=== PATIENT | female | born 1950 ===

== ENCOUNTER 2020-12-14 20:25 | Inpatient (IN) | payer OTHER, MEDICARE ==
[2020-12-14] MEDS ORDERED: Fentanyl 100 MCG/2 ML VIAL ONE (20:28)
[2020-12-14 20:40] LABS: Actual Bicarbonate (HCO3a) 29.1 mEq/L (22-28); Analyzer IN Cardio ER; Base Excess (BEa) 3.3 mEq/L (-2.0 to +3.0); CO2 Tension 48.6 mmHg (35.0-45.0); Calcium, Ionized (arterial) 1.14 mmol/L (1.12-1.30); Carboxyhemoglobin (COHb) 0.7 gm% (0.0-3.0); Hemoglobin (Hb) 14.4 g/dL (12.0-16.0); O2 Tension (PaO2), arterial 217.1 mmHg (> 80.0); Potassium - ABG Lab 4.08 mmol/L (3.70-5.30)
[2020-12-14 20:43] LABS: Puncture Site RRA
[2020-12-14] MEDS ORDERED: Fentanyl CADD 100 ML IV SCH (20:45)
[2020-12-14 20:51] LABS: #Basophils 0.1 thou/uL (0.0-0.2); #Eosinphils 0.5 thou/uL (0.0-0.7); #Lymphocytes 1.6 thou/uL (1.20-3.40); #Neutrophils 11.4 thou/uL (1.40-6.50); %Basophils 0.4 % (0.0-1.0); %Eosinophils 3.7 % (0.0-10.0); %Neutrophils 77.8 % (42.0-75.0); Hemoglobin 14.5 g/dL (12.0-16.0); Mean Corpuscular HGB CONC 33.3 g/dL (32.0-36.0); Mean Corpuscular Hemoglobin 32.2 pg (27.0-31.0); Mean Corpuscular Volume 96.7 fL (78.0-98.0); Mean Platelet Volume 7.6 fL (7.4-10.4); Platelet Count 364 thou/uL (130-400); RBC Distribution Width 14.9 % (11.5-14.5); White Blood Cell (WBC) Count 14.6 thou/uL (4.8-10.8)
[2020-12-14 21:04] LABS: INR-International Normal Ratio 0.9; PTT 23.8 sec (22.9-36.1); Prothrombin Time 12.2 sec (12.0-14.7)
[2020-12-14] MEDS ORDERED: Cefepime 2 GM VIAL ONE (21:09)
[2020-12-14 21:12] LABS: ALT (SGPT) 49 U/L (8-55); AST (SGOT) 33 U/L (5-34); Albumin 3.8 g/dL (3.4-4.8); Alkaline Phosphatase 202 U/L (40-110); Anion Gap 14 mmol/L (10-20); BUN (Urea Nitrogen) 18 mg/dL (9.8-20.1); Bilirubin, Total 0.9 mg/dL (0.2-1.2); Calc. Creatinine Clearance 0 mL/min (70-130); Calcium 9.5 mg/dL (7.8-10.44); Carbon Dioxide 29 mmol/L (23-31); Chloride 98 mmol/L (98-107); Globulin 3.3 g/dL (2.4-3.5); Glucose 210 mg/dL (80-115); Lipase 15 U/L (8-78); Potassium 4.4 mmol/L (3.5-5.1); Protein, Total 7.1 g/dL (5.8-8.1); Sodium 137 mmol/L (136-145)
[2020-12-14 21:13] LABS: Bacteria/HPF None Seen HPF (None Seen); Bilirubin Negative (Negative); Blood, Urine Negative (Negative); Clarity Clear (Clear); Glucose, Urine (Dipstick) 30 mg/dL (Negative); Ketone, Urine Negative (Negative); Leukocyte 25 Leu/uL (Negative); Mucous/LPF 1+ LPF (<2+); Nitrite Negative (Negative); Protein, Urine (Dipstick) 20 mg/dL (Neg-Trace); RBC/HPF 0-3 HPF (0-3); Specific Gravity, Urine 1.023 (1.002-1.036); Squamous Epithelial 0-3 HPF (0-3); Urobilinogen Normal mg/dL (Less than 2); Yeast-Budding 2+ HPF (None Seen)
[2020-12-14 21:36] LABS: SARS-CoV-2 NAA Rapid Test Not Detected (NotDetected)
[2020-12-14] MEDS ORDERED: VANCOMYCIN 2 GRAM/400 ML BAG 2 GM in Premix Bag 1 BAG IVPB SCH (22:30)
[2020-12-14] MEDS ORDERED: DISCONTINUE PREVIOUS NARCOTIC PAIN MEDICATIONS AND BENZODIAZEPINES FS SCH (23:15)
[2020-12-14] MEDS ORDERED: Propofol BOLUS 1,000 MG/100 ML VIAL IV PRN (23:15)
[2020-12-14] MEDS ORDERED: Fentanyl BOLUS 250 ML IVPB PRN (23:15)
[2020-12-14] MEDS ORDERED: Morphine 2 MG/ML VIAL SLOW IVP PRN (23:15)
[2020-12-14] MEDS: Propofol 1,000 MG/100 ML VIAL IV PRN (23:40)
[2020-12-14 23:44] LABS: Lactic Acid 2.2 mmol/L (0.5-2.2)
[2020-12-15] MEDS ORDERED: Lactated Ringer's 1,000 ML IV SCH (00:45)
[2020-12-15] MEDS ORDERED: Ondansetron ODT 4 MG TAB SL PRN (00:45)
[2020-12-15] MEDS ORDERED: Ondansetron PF 4 MG/2 ML Vial IVP PRN ×2 (00:45→01:32)
[2020-12-15] MEDS ORDERED: Dextrose 5% in Water 1,000 ML IV PRN (01:35)
[2020-12-15] MEDS ORDERED: Dextrose 50% Abboject 50 ML SYRINGE SLOW IVP PRN (01:35)
[2020-12-15] MEDS ORDERED: Meropenem 2 GM in Admixture Fee 1 EACH IVPB SCH (01:45)
[2020-12-15] MEDS ORDERED: MEROPENEM 1 GM/50 ML 1 GM in Premix Bag 1 BAG IVPB SCH (01:45)
[2020-12-15] MEDS: methylPREDNISolone Sod Succ 40 MG VIAL IVP SCH ×4 (01:56→20:52)
[2020-12-15 03:41] LABS: Hemoglobin 12.2 g/dL (12.0-16.0); Mean Corpuscular HGB CONC 33.3 g/dL (32.0-36.0); Mean Corpuscular Volume 96.3 fL (78.0-98.0); Mean Platelet Volume 7.8 fL (7.4-10.4); Platelet Count 270 thou/uL (130-400); RBC Distribution Width 14.8 % (11.5-14.5); Red Blood Cell (RBC) Count 3.81 mill/uL (4.20-5.40); White Blood Cell (WBC) Count 10.2 thou/uL (4.8-10.8)
[2020-12-15] MEDS: Levothyroxine Sodium 100 MCG TAB PO SCH (05:09)
[2020-12-15 06:09] LABS: ALT (SGPT) 39 U/L (8-55); AST (SGOT) 22 U/L (5-34); Albumin 3.2 g/dL (3.4-4.8); Alkaline Phosphatase 157 U/L (40-110); Anion Gap 14 mmol/L (10-20); BUN (Urea Nitrogen) 18 mg/dL (9.8-20.1); Calc. Creatinine Clearance 167 mL/min (70-130); Calcium 9.2 mg/dL (7.8-10.44); Carbon Dioxide 29 mmol/L (23-31); Chloride 101 mmol/L (98-107); Globulin 2.7 g/dL (2.4-3.5); Glucose 173 mg/dL (80-115); Potassium 3.8 mmol/L (3.5-5.1); Protein, Total 5.9 g/dL (5.8-8.1); Sodium 140 mmol/L (136-145)
[2020-12-15] MEDS: Lactinex Tablet PO SCH (08:23)
[2020-12-15] MEDS: Enoxaparin Sodium 40 MG/0.4 ML SYRINGE SC SCH (08:23)
[2020-12-15 08:24] LABS: Base Excess (BEa) 3.8 mEq/L (-2.0 to +3.0); CO2 Tension 40.4 mmHg (35.0-45.0); Calcium, Ionized (arterial) 1.18 mmol/L (1.12-1.30); Hemoglobin (Hb) 14.8 g/dL (12.0-16.0); O2 Tension (PaO2), arterial 121.9 mmHg (> 80.0); Potassium - ABG Lab 3.83 mmol/L (3.70-5.30); pH, Arterial 7.46 (7.35-7.45)
[2020-12-15] MEDS: Lactated Ringer's 1,000 ML IV SCH ×2 (08:24→17:22)
[2020-12-15 08:25] LABS: Puncture Site LRA
[2020-12-15] MEDS: Pantoprazole 40 MG VIAL IVP SCH (10:14)
[2020-12-15] MEDS: MEROPENEM 1 GM/50 ML 1 GM in Premix Bag 1 BAG IVPB SCH ×2 (10:15→17:58)
[2020-12-15] MEDS: HumaLOG 300 UNITS/3 ML VIAL SC PRN ×2 (11:37→17:44)
[2020-12-15] MEDS: Propofol 1,000 MG/100 ML VIAL IV PRN ×3 (12:54→20:52)
[2020-12-15] MEDS: Lorazepam 2 MG/ML VIAL SLOW IVP PRN ×2 (14:29→20:52)
[2020-12-15] MEDS ORDERED: VANCOMYCIN 2 GRAM/400 ML BAG 2 GM in Premix Bag 1 BAG IVPB SCH (23:00)
[2020-12-16] MEDS: MEROPENEM 1 GM/50 ML 1 GM in Premix Bag 1 BAG IVPB SCH ×3 (01:39→17:07)
[2020-12-16] MEDS: methylPREDNISolone Sod Succ 40 MG VIAL IVP SCH ×4 (01:40→19:35)
[2020-12-16 03:50] LABS: #Eosinphils 0.1 thou/uL (0.0-0.7); #Lymphocytes 1.1 thou/uL (1.20-3.40); #Monocytes 0.2 thou/uL (0.11-0.59); #Neutrophils 6.9 thou/uL (1.40-6.50); %Lymphocytes 13.2 % (21.0-51.0); %Monocytes 2.8 % (0.0-10.0); Hemoglobin 12.7 g/dL (12.0-16.0); Mean Corpuscular HGB CONC 32.9 g/dL (32.0-36.0); Mean Corpuscular Hemoglobin 30.9 pg (27.0-31.0); Mean Corpuscular Volume 93.9 fL (78.0-98.0); Mean Platelet Volume 7.7 fL (7.4-10.4); Platelet Count 256 thou/uL (130-400); RBC Distribution Width 14.5 % (11.5-14.5); Red Blood Cell (RBC) Count 4.12 mill/uL (4.20-5.40); White Blood Cell (WBC) Count 8.4 thou/uL (4.8-10.8)
[2020-12-16 04:18] LABS: ALT (SGPT) 36 U/L (8-55); AST (SGOT) 20 U/L (5-34); Albumin 3.4 g/dL (3.4-4.8); Alkaline Phosphatase 154 U/L (40-110); Anion Gap 15 mmol/L (10-20); BUN (Urea Nitrogen) 18 mg/dL (9.8-20.1); Bilirubin, Total 0.7 mg/dL (0.2-1.2); Calc. Creatinine Clearance 164 mL/min (70-130); Calcium 9.7 mg/dL (7.8-10.44); Carbon Dioxide 27 mmol/L (23-31); Chloride 100 mmol/L (98-107); Globulin 3.1 g/dL (2.4-3.5); Glucose 177 mg/dL (80-115); Potassium 3.8 mmol/L (3.5-5.1); Protein, Total 6.5 g/dL (5.8-8.1); Sodium 138 mmol/L (136-145)
[2020-12-16] MEDS: Levothyroxine Sodium 100 MCG TAB PO SCH (05:27)
[2020-12-16] MEDS: Propofol 1,000 MG/100 ML VIAL IV PRN (05:27)
[2020-12-16 06:56] LABS: Actual Bicarbonate (HCO3a) 25.3 mEq/L (22-28); Base Excess (BEa) 1.1 mEq/L (-2.0 to +3.0); CO2 Tension 38.9 mmHg (35.0-45.0); Calcium, Ionized (arterial) 1.22 mmol/L (1.12-1.30); Carboxyhemoglobin (COHb) 0.5 gm% (0.0-3.0); Hemoglobin (Hb) 12.6 g/dL (12.0-16.0); O2 Tension (PaO2), arterial 109.8 mmHg (> 80.0); Potassium - ABG Lab 3.31 mmol/L (3.70-5.30); pH, Arterial 7.43 (7.35-7.45)
[2020-12-16 06:58] LABS: ALV-art Gradient 55.475 mmHg (0-20); Puncture Site RRA
[2020-12-16] MEDS ORDERED: DC Sedation Protocol FS SCH (07:39)
[2020-12-16] MEDS: Enoxaparin Sodium 40 MG/0.4 ML SYRINGE SC SCH (08:53)
[2020-12-16] MEDS: Pantoprazole 40 MG VIAL IVP SCH (08:54)
[2020-12-16] MEDS: Lactinex Tablet PO SCH (08:54)
[2020-12-16] MEDS ORDERED: Bisacodyl 10 MG SUPP PR PRN (13:19)
[2020-12-16] MEDS ORDERED: Polyethylene Glycol 3350 17 GM Packet PO PRN (13:19)
[2020-12-16] MEDS: Acetaminophen 325 MG TAB PO PRN (16:47)
[2020-12-16] MEDS: Budesonide 0.5 MG/2 ML NEB NEB SCH (18:17)
[2020-12-16] MEDS: Mirtazapine 15 MG TAB PO SCH (19:35)
[2020-12-17] MEDS: HumaLOG 300 UNITS/3 ML VIAL SC PRN ×5 (00:06→21:14)
[2020-12-17] MEDS: Lactated Ringer's 1,000 ML IV SCH ×2 (00:08→20:52)
[2020-12-17] MEDS: methylPREDNISolone Sod Succ 40 MG VIAL IVP SCH ×4 (03:19→21:03)
[2020-12-17] MEDS: MEROPENEM 1 GM/50 ML 1 GM in Premix Bag 1 BAG IVPB SCH ×3 (03:19→17:14)
[2020-12-17] MEDS ORDERED: ALPRAZolam 0.25 MG TAB PO SCH (04:00)
[2020-12-17] MEDS: Levothyroxine Sodium 100 MCG TAB PO SCH (07:02)
[2020-12-17] MEDS: Pantoprazole 40 MG VIAL IVP SCH (08:25)
[2020-12-17] MEDS: Aspirin 81 mg Enteric Coated Tablet PO SCH (08:25)
[2020-12-17] MEDS: ALPRAZolam 0.5 MG TAB PO PRN ×2 (08:25→23:42)
[2020-12-17] MEDS: Enoxaparin Sodium 40 MG/0.4 ML SYRINGE SC SCH (08:25)
[2020-12-17] MEDS: Lactinex Tablet PO SCH (08:26)
[2020-12-17] MEDS: Escitalopram Oxalate 20 mg Tablet PO SCH (08:26)
[2020-12-17] MEDS: Multivit, Therapeutic 1 TAB PO SCH (08:26)
[2020-12-17] MEDS ORDERED: Dexamethasone 4 mg/ml Vial SLOW IVP SCH (10:00)
[2020-12-17] MEDS ORDERED: hydrALAZINE 20 MG/ML VIAL SLOW IVP SCH (10:45)
[2020-12-17] MEDS: Dexamethasone 4 mg/ml Vial SLOW IVP SCH ×2 (16:02→21:02)
[2020-12-17] MEDS: Budesonide 0.5 MG/2 ML NEB NEB SCH ×2 (16:30→19:31)
[2020-12-17] MEDS: Mirtazapine 15 MG TAB PO SCH (21:03)
[2020-12-17] MEDS: Lantus 1000 UNITS/10 ML VIAL SC SCH (21:13)
[2020-12-18] MEDS: methylPREDNISolone Sod Succ 40 MG VIAL IVP SCH ×5 (02:03→23:01)
[2020-12-18] MEDS: Dexamethasone 4 mg/ml Vial SLOW IVP SCH ×3 (02:03→14:18)
[2020-12-18] MEDS: MEROPENEM 1 GM/50 ML 1 GM in Premix Bag 1 BAG IVPB SCH ×3 (02:07→18:08)
[2020-12-18] MEDS: Levothyroxine Sodium 100 MCG TAB PO SCH (04:57)
[2020-12-18] MEDS: HumaLOG 300 UNITS/3 ML VIAL SC PRN ×2 (05:11→17:39)
[2020-12-18] MEDS: Lactinex Tablet PO SCH (09:17)
[2020-12-18] MEDS: Aspirin 81 mg Enteric Coated Tablet PO SCH (09:17)
[2020-12-18] MEDS: Escitalopram Oxalate 20 mg Tablet PO SCH (09:17)
[2020-12-18] MEDS: Multivit, Therapeutic 1 TAB PO SCH (09:17)
[2020-12-18] MEDS: Pantoprazole 40 MG VIAL IVP SCH (09:18)
[2020-12-18] MEDS: Enoxaparin Sodium 40 MG/0.4 ML SYRINGE SC SCH (09:22)
[2020-12-18] MEDS: Polyethylene Glycol 3350 17 GM Packet PO SCH (09:22)
[2020-12-18] MEDS: Lantus 1000 UNITS/10 ML VIAL SC SCH ×2 (09:23→20:54)
[2020-12-18] MEDS: ALPRAZolam 0.5 MG TAB PO PRN ×2 (09:33→17:36)
[2020-12-18 11:01] LABS: #Eosinphils 0.2 thou/uL (0.0-0.7); #Lymphocytes 1.1 thou/uL (1.20-3.40); #Neutrophils 8.8 thou/uL (1.40-6.50); %Basophils 0.2 % (0.0-1.0); %Eosinophils 2.1 % (0.0-10.0); %Lymphocytes 9.5 % (21.0-51.0); %Monocytes 9.1 % (0.0-10.0); %Neutrophils 79.1 % (42.0-75.0); Hemoglobin 13.6 g/dL (12.0-16.0); Mean Corpuscular HGB CONC 33.6 g/dL (32.0-36.0); Mean Corpuscular Hemoglobin 32.1 pg (27.0-31.0); Mean Corpuscular Volume 95.6 fL (78.0-98.0); Mean Platelet Volume 7.7 fL (7.4-10.4); Platelet Count 271 thou/uL (130-400); RBC Distribution Width 14.7 % (11.5-14.5); Red Blood Cell (RBC) Count 4.22 mill/uL (4.20-5.40); White Blood Cell (WBC) Count 11.1 thou/uL (4.8-10.8)
[2020-12-18 11:09] LABS: Anion Gap 17 mmol/L (10-20); BUN (Urea Nitrogen) 19 mg/dL (9.8-20.1); Calc. Creatinine Clearance 185 mL/min (70-130); Calcium 9.1 mg/dL (7.8-10.44); Carbon Dioxide 26 mmol/L (23-31); Chloride 101 mmol/L (98-107); Glucose 176 mg/dL (80-115); Potassium 3.5 mmol/L (3.5-5.1); Sodium 140 mmol/L (136-145)
[2020-12-18] MEDS: Budesonide 0.5 MG/2 ML NEB NEB SCH ×2 (11:53→20:03)
[2020-12-18] MEDS ORDERED: GUAIFENESIN SF SOLN 200 MG/10 ML UDCUP PER TUBE SCH (12:30)
[2020-12-18] MEDS ORDERED: Famotidine 40 MG/4 ML VIAL IV SCH (15:15)
[2020-12-18] MEDS ORDERED: Famotidine/PF 20 mg/2ml Vial IVPB SCH (16:15)
[2020-12-18] MEDS: Famotidine/PF 20 mg/2ml Vial SLOW IVP SCH (17:00)
[2020-12-18] MEDS: Lactated Ringer's 1,000 ML IV SCH (17:16)
[2020-12-18] MEDS: Mirtazapine 15 MG TAB PO SCH (20:53)
[2020-12-18] MEDS: GUAIFENESIN SF SOLN 200 MG/10 ML UDCUP PER TUBE SCH (20:53)
[2020-12-19] MEDS: ALPRAZolam 0.5 MG TAB PO PRN ×3 (01:21→16:24)
[2020-12-19] MEDS: MEROPENEM 1 GM/50 ML 1 GM in Premix Bag 1 BAG IVPB SCH ×3 (01:21→19:41)
[2020-12-19 04:19] LABS: #Lymphocytes 0.7 thou/uL (1.20-3.40); #Monocytes 0.4 thou/uL (0.11-0.59); #Neutrophils 6.6 thou/uL (1.40-6.50); %Basophils 0.1 % (0.0-1.0); %Eosinophils 0.6 % (0.0-10.0); %Lymphocytes 8.5 % (21.0-51.0); %Monocytes 5.5 % (0.0-10.0); %Neutrophils 85.2 % (42.0-75.0); Hemoglobin 12.4 g/dL (12.0-16.0); Mean Corpuscular HGB CONC 34.5 g/dL (32.0-36.0); Mean Corpuscular Hemoglobin 32.7 pg (27.0-31.0); Mean Corpuscular Volume 94.9 fL (78.0-98.0); Platelet Count 208 thou/uL (130-400); RBC Distribution Width 14.7 % (11.5-14.5); Red Blood Cell (RBC) Count 3.79 mill/uL (4.20-5.40); White Blood Cell (WBC) Count 7.8 thou/uL (4.8-10.8)
[2020-12-19 04:50] LABS: Anion Gap 12 mmol/L (10-20); BUN (Urea Nitrogen) 21 mg/dL (9.8-20.1); Calc. Creatinine Clearance 172 mL/min (70-130); Carbon Dioxide 32 mmol/L (23-31); Chloride 102 mmol/L (98-107); Glucose 301 mg/dL (80-115); Potassium 3.9 mmol/L (3.5-5.1); Sodium 142 mmol/L (136-145)
[2020-12-19] MEDS: Levothyroxine Sodium 100 MCG TAB PO SCH (05:32)
[2020-12-19] MEDS: methylPREDNISolone Sod Succ 40 MG VIAL IVP SCH ×4 (05:32→19:43)
[2020-12-19] MEDS: HumaLOG 300 UNITS/3 ML VIAL SC PRN ×3 (05:33→18:40)
[2020-12-19] MEDS: Famotidine/PF 20 mg/2ml Vial SLOW IVP SCH ×2 (05:35→16:22)
[2020-12-19 07:14] LABS: Actual Bicarbonate (HCO3a) 30.5 mEq/L (22-28); Base Excess (BEa) 7.6 mEq/L (-2.0 to +3.0); CO2 Tension 37.1 mmHg (35.0-45.0); Calcium, Ionized (arterial) 1.16 mmol/L (1.12-1.30); Carboxyhemoglobin (COHb) 1.3 gm% (0.0-3.0); Hemoglobin (Hb) 13.6 g/dL (12.0-16.0); O2 Tension (PaO2), arterial 61.3 mmHg (> 80.0); Potassium - ABG Lab 3.69 mmol/L (3.70-5.30); pH, Arterial 7.53 (7.35-7.45)
[2020-12-19 07:18] LABS: Puncture Site LRA
[2020-12-19 07:19] LABS: ALV-art Gradient 42.055 mmHg (0-20)
[2020-12-19] MEDS: Budesonide 0.5 MG/2 ML NEB NEB SCH ×2 (07:49→21:04)
[2020-12-19] MEDS: Enoxaparin Sodium 40 MG/0.4 ML SYRINGE SC SCH (08:45)
[2020-12-19] MEDS: Polyethylene Glycol 3350 17 GM Packet PO SCH (08:45)
[2020-12-19] MEDS: Lactinex Tablet PO SCH (08:46)
[2020-12-19] MEDS: Aspirin 81 mg Enteric Coated Tablet PO SCH (08:46)
[2020-12-19] MEDS: Lantus 1000 UNITS/10 ML VIAL SC SCH ×2 (08:46→19:41)
[2020-12-19] MEDS: GUAIFENESIN SF SOLN 200 MG/10 ML UDCUP PER TUBE SCH ×2 (08:46→19:40)
[2020-12-19] MEDS: Escitalopram Oxalate 20 mg Tablet PO SCH (08:46)
[2020-12-19] MEDS: Multivit, Therapeutic 1 TAB PO SCH (08:46)
[2020-12-19] MEDS ORDERED: Sodium Bicarbonate Tab 325 MG TAB PER TUBE PRN (09:45)
[2020-12-19] MEDS ORDERED: Pancrelipase DR 12,000 1 CAP FS PRN (09:45)
[2020-12-19] MEDS: Lactated Ringer's 1,000 ML IV SCH (12:18)
[2020-12-19] MEDS ORDERED: Amlodipine 10 MG TAB PO SCH (16:30)
[2020-12-19] MEDS: Mirtazapine 15 MG TAB PO SCH (19:41)
[2020-12-19] MEDS: Lisinopril 10 MG TAB PO SCH (19:41)
[2020-12-20] MEDS: MEROPENEM 1 GM/50 ML 1 GM in Premix Bag 1 BAG IVPB SCH ×2 (01:26→09:27)
[2020-12-20] MEDS: methylPREDNISolone Sod Succ 40 MG VIAL IVP SCH ×5 (01:26→21:00)
[2020-12-20] MEDS: ALPRAZolam 0.5 MG TAB PO PRN ×4 (01:26→20:59)
[2020-12-20] MEDS: Famotidine/PF 20 mg/2ml Vial SLOW IVP SCH ×2 (04:17→15:13)
[2020-12-20] MEDS: Levothyroxine Sodium 100 MCG TAB PO SCH (04:18)
[2020-12-20 04:23] LABS: #Eosinphils 0.1 thou/uL (0.0-0.7); #Lymphocytes 0.8 thou/uL (1.20-3.40); #Monocytes 0.4 thou/uL (0.11-0.59); #Neutrophils 6.7 thou/uL (1.40-6.50); %Basophils 0.2 % (0.0-1.0); %Eosinophils 1.7 % (0.0-10.0); %Lymphocytes 10.4 % (21.0-51.0); %Monocytes 4.5 % (0.0-10.0); %Neutrophils 83.3 % (42.0-75.0); Mean Corpuscular HGB CONC 33.2 g/dL (32.0-36.0); Mean Corpuscular Hemoglobin 31.5 pg (27.0-31.0); Mean Corpuscular Volume 94.8 fL (78.0-98.0); Mean Platelet Volume 8.1 fL (7.4-10.4); Platelet Count 180 thou/uL (130-400); RBC Distribution Width 14.5 % (11.5-14.5); Red Blood Cell (RBC) Count 4.13 mill/uL (4.20-5.40)
[2020-12-20 04:51] LABS: Anion Gap 12 mmol/L (10-20); BUN (Urea Nitrogen) 18 mg/dL (9.8-20.1); Calc. Creatinine Clearance 217 mL/min (70-130); Calcium 8.7 mg/dL (7.8-10.44); Carbon Dioxide 32 mmol/L (23-31); Chloride 101 mmol/L (98-107); Glucose 188 mg/dL (80-115); Sodium 141 mmol/L (136-145)
[2020-12-20] MEDS: HumaLOG 300 UNITS/3 ML VIAL SC PRN ×3 (05:31→18:10)
[2020-12-20] MEDS: Budesonide 0.5 MG/2 ML NEB NEB SCH ×2 (07:29→20:13)
[2020-12-20] MEDS: Enoxaparin Sodium 40 MG/0.4 ML SYRINGE SC SCH (09:28)
[2020-12-20] MEDS: GUAIFENESIN SF SOLN 200 MG/10 ML UDCUP PER TUBE SCH ×2 (09:28→20:33)
[2020-12-20] MEDS: Escitalopram Oxalate 20 mg Tablet PO SCH (09:29)
[2020-12-20] MEDS: Lactinex Tablet PO SCH (09:29)
[2020-12-20] MEDS: Aspirin 81 mg Enteric Coated Tablet PO SCH (09:29)
[2020-12-20] MEDS: Multivit, Therapeutic 1 TAB PO SCH (09:29)
[2020-12-20] MEDS: Lisinopril 10 MG TAB PO SCH ×2 (09:29→20:33)
[2020-12-20] MEDS: Amlodipine 10 MG TAB PO SCH (09:29)
[2020-12-20] MEDS: Lantus 1000 UNITS/10 ML VIAL SC SCH ×2 (09:33→20:35)
[2020-12-20] MEDS: Polyethylene Glycol 3350 17 GM Packet PO SCH (09:34)
[2020-12-20] MEDS: Lactated Ringer's 1,000 ML IV SCH (09:43)
[2020-12-20] MEDS: Acetaminophen 325 MG TAB PO PRN (14:34)
[2020-12-20] MEDS: Scopolamine 1.5 mg/72 hour Patch TD SCH (14:45)
[2020-12-20] MEDS: Mirtazapine 15 MG TAB PO SCH (20:33)
[2020-12-21] MEDS: Lactated Ringer's 1,000 ML IV SCH (03:20)
[2020-12-21] MEDS: methylPREDNISolone Sod Succ 40 MG VIAL IVP SCH ×4 (03:21→20:34)
[2020-12-21] MEDS: Levothyroxine Sodium 100 MCG TAB PO SCH (05:11)
[2020-12-21] MEDS: Famotidine/PF 20 mg/2ml Vial SLOW IVP SCH ×2 (05:11→16:14)
[2020-12-21] MEDS: HumaLOG 300 UNITS/3 ML VIAL SC PRN ×2 (05:12→18:29)
[2020-12-21] MEDS: Budesonide 0.5 MG/2 ML NEB NEB SCH ×2 (07:56→19:53)
[2020-12-21] MEDS: GUAIFENESIN SF SOLN 200 MG/10 ML UDCUP PER TUBE SCH ×2 (08:58→20:32)
[2020-12-21] MEDS: Multivit, Therapeutic 1 TAB PO SCH (08:58)
[2020-12-21] MEDS: ALPRAZolam 0.5 MG TAB PO PRN (08:58)
[2020-12-21] MEDS: Aspirin 81 mg Enteric Coated Tablet PO SCH (08:58)
[2020-12-21] MEDS: Escitalopram Oxalate 20 mg Tablet PO SCH (08:58)
[2020-12-21] MEDS: Amlodipine 10 MG TAB PO SCH (08:58)
[2020-12-21] MEDS: Lactinex Tablet PO SCH (08:58)
[2020-12-21] MEDS: Lisinopril 10 MG TAB PO SCH ×2 (08:58→20:32)
[2020-12-21] MEDS: Enoxaparin Sodium 40 MG/0.4 ML SYRINGE SC SCH (08:58)
[2020-12-21] MEDS: Lantus 1000 UNITS/10 ML VIAL SC SCH ×2 (08:59→20:34)
[2020-12-21] MEDS: Polyethylene Glycol 3350 17 GM Packet PO SCH (09:00)
[2020-12-21] MEDS ORDERED: Lidocaine 1% w/Epinephrine 1:100K 20 ML VIAL ONE (10:17)
[2020-12-21] MEDS ORDERED: Oxymetazoline HCl 0.05% (30 ML BOT) NS SCH (10:30)
[2020-12-21] MEDS: Mirtazapine 15 MG TAB PO SCH (20:32)
[2020-12-22] MEDS: HumaLOG 300 UNITS/3 ML VIAL SC PRN (00:23)
[2020-12-22] MEDS: Lactated Ringer's 1,000 ML IV SCH ×2 (00:23→20:59)
[2020-12-22] MEDS: methylPREDNISolone Sod Succ 40 MG VIAL IVP SCH ×4 (04:03→21:00)
[2020-12-22] MEDS: Famotidine/PF 20 mg/2ml Vial SLOW IVP SCH (04:03)
[2020-12-22] MEDS: Levothyroxine Sodium 100 MCG TAB PO SCH (05:26)
[2020-12-22] MEDS: Budesonide 0.5 MG/2 ML NEB NEB SCH ×2 (08:22→19:19)
[2020-12-22] MEDS: GUAIFENESIN SF SOLN 200 MG/10 ML UDCUP PER TUBE SCH ×2 (09:59→20:59)
[2020-12-22] MEDS: Enoxaparin Sodium 40 MG/0.4 ML SYRINGE SC SCH (09:59)
[2020-12-22] MEDS: Escitalopram Oxalate 20 mg Tablet PO SCH (09:59)
[2020-12-22] MEDS: Amlodipine 10 MG TAB PO SCH (09:59)
[2020-12-22] MEDS: Aspirin 81 mg Enteric Coated Tablet PO SCH (09:59)
[2020-12-22] MEDS: Multivit, Therapeutic 1 TAB PO SCH (10:00)
[2020-12-22] MEDS: Lantus 1000 UNITS/10 ML VIAL SC SCH ×2 (10:00→21:09)
[2020-12-22] MEDS: Polyethylene Glycol 3350 17 GM Packet PO SCH (10:00)
[2020-12-22] MEDS: Lisinopril 10 MG TAB PO SCH ×2 (10:00→20:59)
[2020-12-22] MEDS: Lactinex Tablet PO SCH (10:00)
[2020-12-22] MEDS ORDERED: Lidocaine 1% w/Epinephrine 1:100K 20 ML VIAL ONE (13:28)
[2020-12-22] MEDS ORDERED: Lidocaine 4% Topical Sol 50 ML BOT ONE (13:34)
[2020-12-22 13:40] LABS: SARS-CoV-2 PCR by NAA Not Detected (NotDetected)
[2020-12-22] MEDS ORDERED: Fentanyl 100 MCG/2 ML VIAL ONE (14:41)
[2020-12-22] MEDS ORDERED: PHENYLEPHRINE-NS 100 MCG/ML 10 ML SYRINGE ONE (14:54)
[2020-12-22] MEDS ORDERED: Succinylcholine 200 MG/10 ml SYRINGE FS ONE (14:54)
[2020-12-22] MEDS ORDERED: PROPOFOL 200 MG/20 ML VIAL ONE (14:54)
[2020-12-22] MEDS ORDERED: Ondansetron PF 4 MG/2 ML Vial ONE (14:54)
[2020-12-22] MEDS ORDERED: ePHEDrine 50 MG/ML VIAL ONE (14:54)
[2020-12-22] MEDS ORDERED: Lidocaine 1% PF 5 ML VIAL ONE (14:54)
[2020-12-22] MEDS ORDERED: Ondansetron HCl/PF 4 MG/2 ML Vial IVP PRN (15:44)
[2020-12-22] MEDS ORDERED: Promethazine HCl 25 MG/ML VIAL IVPB PRN (15:44)
[2020-12-22] MEDS ORDERED: Promethazine HCl 25 MG/ML VIAL IM PRN (15:44)
[2020-12-22] MEDS ORDERED: Labetalol HCl 100 MG/20 ML VIAL ONE (15:53)
[2020-12-22] MEDS: Famotidine 20 MG TAB PO SCH (20:59)
[2020-12-22] MEDS: ALPRAZolam 0.5 MG TAB PO PRN (20:59)
[2020-12-22] MEDS: Mirtazapine 15 MG TAB PO SCH (20:59)
[2020-12-23] MEDS: methylPREDNISolone Sod Succ 40 MG VIAL IVP SCH ×3 (04:44→21:09)
[2020-12-23] MEDS: Levothyroxine Sodium 100 MCG TAB PO SCH (05:18)
[2020-12-23] MEDS: HumaLOG 300 UNITS/3 ML VIAL SC PRN (05:19)
[2020-12-23] MEDS: Amlodipine 10 MG TAB PO SCH (10:02)
[2020-12-23] MEDS: Aspirin 81 mg Enteric Coated Tablet PO SCH (10:02)
[2020-12-23] MEDS: Escitalopram Oxalate 20 mg Tablet PO SCH (10:02)
[2020-12-23] MEDS: Famotidine 20 MG TAB PO SCH ×2 (10:03→21:09)
[2020-12-23] MEDS: Lisinopril 10 MG TAB PO SCH ×2 (10:03→21:09)
[2020-12-23] MEDS: Multivit, Therapeutic 1 TAB PO SCH (10:03)
[2020-12-23] MEDS: GUAIFENESIN SF SOLN 200 MG/10 ML UDCUP PER TUBE SCH ×2 (10:03→21:08)
[2020-12-23] MEDS: Lactinex Tablet PO SCH (10:03)
[2020-12-23] MEDS: Enoxaparin Sodium 40 MG/0.4 ML SYRINGE SC SCH (10:03)
[2020-12-23] MEDS: Polyethylene Glycol 3350 17 GM Packet PO SCH (10:04)
[2020-12-23] MEDS: Lantus 1000 UNITS/10 ML VIAL SC SCH ×2 (10:08→21:10)
[2020-12-23] MEDS ORDERED: hydrALAZINE 20 MG/ML VIAL SLOW IVP PRN (11:13)
[2020-12-23] MEDS: ALPRAZolam 0.5 MG TAB PO PRN (13:45)
[2020-12-23] MEDS: Acetaminophen 325 MG TAB PO PRN (13:45)
[2020-12-23] MEDS: Scopolamine 1.5 mg/72 hour Patch TD SCH (16:00)
[2020-12-23] MEDS: Budesonide 0.5 MG/2 ML NEB NEB SCH (19:47)
[2020-12-23] MEDS: Mirtazapine 15 MG TAB PO SCH (21:08)
[2020-12-23] MEDS: Loperamide HCl 2 MG CAP PO PRN (21:08)
[2020-12-24] MEDS: Levothyroxine Sodium 100 MCG TAB PO SCH (05:14)
[2020-12-24] MEDS: GUAIFENESIN SF SOLN 200 MG/10 ML UDCUP PER TUBE SCH ×2 (09:23→21:50)
[2020-12-24] MEDS: methylPREDNISolone Sod Succ 40 MG VIAL IVP SCH ×2 (09:24→21:51)
[2020-12-24] MEDS: Enoxaparin Sodium 40 MG/0.4 ML SYRINGE SC SCH (09:24)
[2020-12-24] MEDS: Escitalopram Oxalate 20 mg Tablet PO SCH (09:24)
[2020-12-24] MEDS: Amlodipine 10 MG TAB PO SCH (09:25)
[2020-12-24] MEDS: Multivit, Therapeutic 1 TAB PO SCH (09:25)
[2020-12-24] MEDS: Polyethylene Glycol 3350 17 GM Packet PO SCH (09:25)
[2020-12-24] MEDS: Lisinopril 10 MG TAB PO SCH ×2 (09:25→21:51)
[2020-12-24] MEDS: Budesonide 0.5 MG/2 ML NEB NEB SCH ×2 (09:25→19:22)
[2020-12-24] MEDS: Famotidine 20 MG TAB PO SCH ×2 (09:25→21:51)
[2020-12-24] MEDS: Lactinex Tablet PO SCH (09:25)
[2020-12-24] MEDS: Aspirin 81 mg Enteric Coated Tablet PO SCH (09:25)
[2020-12-24] MEDS: Lantus 1000 UNITS/10 ML VIAL SC SCH ×2 (09:26→21:52)
[2020-12-24] MEDS: Acetaminophen 325 MG TAB PO PRN (09:36)
[2020-12-24] MEDS: ALPRAZolam 0.5 MG TAB PO PRN (09:37)
[2020-12-24] MEDS: Loperamide HCl 2 MG CAP PO PRN (09:37)
[2020-12-24] MEDS: Mirtazapine 15 MG TAB PO SCH (21:50)
[2020-12-25] MEDS: HumaLOG 300 UNITS/3 ML VIAL SC PRN ×2 (00:30→06:05)
[2020-12-25 03:30] LABS: #Lymphocytes 0.8 thou/uL (1.20-3.40); #Monocytes 0.4 thou/uL (0.11-0.59); %Basophils 0.2 % (0.0-1.0); %Eosinophils 0.5 % (0.0-10.0); %Lymphocytes 8.3 % (21.0-51.0); %Monocytes 3.9 % (0.0-10.0); Hemoglobin 13.7 g/dL (12.0-16.0); Mean Corpuscular HGB CONC 34.3 g/dL (32.0-36.0); Mean Corpuscular Hemoglobin 32.6 pg (27.0-31.0); Platelet Count 142 thou/uL (130-400); RBC Distribution Width 14.6 % (11.5-14.5); Red Blood Cell (RBC) Count 4.22 mill/uL (4.20-5.40); White Blood Cell (WBC) Count 9.2 thou/uL (4.8-10.8)
[2020-12-25 03:53] LABS: Anion Gap 13 mmol/L (10-20); BUN (Urea Nitrogen) 16 mg/dL (9.8-20.1); Calc. Creatinine Clearance 205 mL/min (70-130); Calcium 8.6 mg/dL (7.8-10.44); Carbon Dioxide 26 mmol/L (23-31); Chloride 103 mmol/L (98-107); Glucose 197 mg/dL (80-115); Sodium 138 mmol/L (136-145)
[2020-12-25] MEDS: Levothyroxine Sodium 100 MCG TAB PO SCH (06:05)
[2020-12-25] MEDS: Budesonide 0.5 MG/2 ML NEB NEB SCH ×2 (08:03→19:03)
[2020-12-25] MEDS: Aspirin 81 mg Enteric Coated Tablet PO SCH (09:24)
[2020-12-25] MEDS: Famotidine 20 MG TAB PO SCH ×2 (09:24→20:52)
[2020-12-25] MEDS: GUAIFENESIN SF SOLN 200 MG/10 ML UDCUP PER TUBE SCH ×2 (09:24→20:52)
[2020-12-25] MEDS: Multivit, Therapeutic 1 TAB PO SCH (09:24)
[2020-12-25] MEDS: Amlodipine 10 MG TAB PO SCH (09:24)
[2020-12-25] MEDS: Lactinex Tablet PO SCH (09:24)
[2020-12-25] MEDS: methylPREDNISolone Sod Succ 40 MG VIAL IVP SCH ×2 (09:24→20:54)
[2020-12-25] MEDS: Enoxaparin Sodium 40 MG/0.4 ML SYRINGE SC SCH (09:24)
[2020-12-25] MEDS: Lantus 1000 UNITS/10 ML VIAL SC SCH ×2 (09:25→20:54)
[2020-12-25] MEDS: Escitalopram Oxalate 20 mg Tablet PO SCH (09:25)
[2020-12-25] MEDS: Polyethylene Glycol 3350 17 GM Packet PO SCH (09:25)
[2020-12-25] MEDS: Lisinopril 10 MG TAB PO SCH ×2 (09:25→20:52)
[2020-12-25] MEDS: ALPRAZolam 0.5 MG TAB PO PRN (16:02)
[2020-12-25] MEDS: Mirtazapine 15 MG TAB PO SCH (20:52)
[2020-12-26] MEDS: Levothyroxine Sodium 100 MCG TAB PO SCH (05:16)
[2020-12-26] MEDS: Budesonide 0.5 MG/2 ML NEB NEB SCH ×2 (07:21→19:35)
[2020-12-26] MEDS: Amlodipine 10 MG TAB PO SCH (10:07)
[2020-12-26] MEDS: Escitalopram Oxalate 20 mg Tablet PO SCH (10:08)
[2020-12-26] MEDS: Lactinex Tablet PO SCH (10:08)
[2020-12-26] MEDS: Lisinopril 10 MG TAB PO SCH ×2 (10:09→20:45)
[2020-12-26] MEDS: Multivit, Therapeutic 1 TAB PO SCH (10:09)
[2020-12-26] MEDS: Enoxaparin Sodium 40 MG/0.4 ML SYRINGE SC SCH (10:10)
[2020-12-26] MEDS: GUAIFENESIN SF SOLN 200 MG/10 ML UDCUP PER TUBE SCH ×2 (10:10→20:46)
[2020-12-26] MEDS: Famotidine 20 MG TAB PO SCH ×2 (10:10→20:45)
[2020-12-26] MEDS: Lantus 1000 UNITS/10 ML VIAL SC SCH ×2 (10:11→20:45)
[2020-12-26] MEDS: Aspirin 81 mg Enteric Coated Tablet PO SCH (10:11)
[2020-12-26] MEDS: methylPREDNISolone Sod Succ 40 MG VIAL IVP SCH (10:12)
[2020-12-26] MEDS: Polyethylene Glycol 3350 17 GM Packet PO SCH (10:16)
[2020-12-26] MEDS: ALPRAZolam 0.5 MG TAB PO PRN (12:05)
[2020-12-26] MEDS ORDERED: Morphine 2 MG/ML VIAL SLOW IVP PRN (12:07)
[2020-12-26] MEDS: HYDROcodone/Acetaminophen 5/325 mg Tablet PO PRN (14:28)
[2020-12-26] MEDS: Scopolamine 1.5 mg/72 hour Patch TD SCH (15:16)
[2020-12-26] MEDS: Mirtazapine 15 MG TAB PO SCH (20:45)
[2020-12-27] MEDS: Levothyroxine Sodium 100 MCG TAB PO SCH (05:44)
[2020-12-27] MEDS: Budesonide 0.5 MG/2 ML NEB NEB SCH ×2 (08:26→19:31)
[2020-12-27] MEDS: Polyethylene Glycol 3350 17 GM Packet PO SCH (09:26)
[2020-12-27] MEDS: Lactinex Tablet PO SCH (09:32)
[2020-12-27] MEDS: GUAIFENESIN SF SOLN 200 MG/10 ML UDCUP PER TUBE SCH ×2 (09:32→21:25)
[2020-12-27] MEDS: Aspirin 81 mg Enteric Coated Tablet PO SCH (09:32)
[2020-12-27] MEDS: Escitalopram Oxalate 20 mg Tablet PO SCH (09:32)
[2020-12-27] MEDS: Multivit, Therapeutic 1 TAB PO SCH (09:32)
[2020-12-27] MEDS: Enoxaparin Sodium 40 MG/0.4 ML SYRINGE SC SCH (09:32)
[2020-12-27] MEDS: predniSONE 20 MG TAB PO SCH (09:32)
[2020-12-27] MEDS: Famotidine 20 MG TAB PO SCH ×2 (09:33→21:25)
[2020-12-27] MEDS: Lantus 1000 UNITS/10 ML VIAL SC SCH ×2 (09:33→21:25)
[2020-12-27] MEDS: Lisinopril 10 MG TAB PO SCH ×2 (09:52→21:25)
[2020-12-27] MEDS: Amlodipine 10 MG TAB PO SCH (09:52)
[2020-12-27] MEDS: Mirtazapine 15 MG TAB PO SCH (21:25)
[2020-12-28] MEDS: Diphenoxylate HCl/Atropine Tablet PO PRN (01:14)
[2020-12-28 04:21] LABS: #Eosinphils 0.1 thou/uL (0.0-0.7); #Lymphocytes 1.6 thou/uL (1.20-3.40); #Monocytes 1.3 thou/uL (0.11-0.59); #Neutrophils 11.3 thou/uL (1.40-6.50); %Basophils 0.1 % (0.0-1.0); %Eosinophils 0.6 % (0.0-10.0); %Lymphocytes 11.3 % (21.0-51.0); %Monocytes 9.1 % (0.0-10.0); %Neutrophils 78.8 % (42.0-75.0); Hemoglobin 14.2 g/dL (12.0-16.0); Mean Corpuscular HGB CONC 33.6 g/dL (32.0-36.0); Mean Corpuscular Hemoglobin 31.8 pg (27.0-31.0); Mean Corpuscular Volume 94.5 fL (78.0-98.0); Mean Platelet Volume 8.2 fL (7.4-10.4); Platelet Count 182 thou/uL (130-400); RBC Distribution Width 14.6 % (11.5-14.5); Red Blood Cell (RBC) Count 4.46 mill/uL (4.20-5.40); White Blood Cell (WBC) Count 14.4 thou/uL (4.8-10.8)
[2020-12-28 04:37] LABS: Anion Gap 13 mmol/L (10-20); BUN (Urea Nitrogen) 18 mg/dL (9.8-20.1); Calc. Creatinine Clearance 187 mL/min (70-130); Calcium 8.7 mg/dL (7.8-10.44); Carbon Dioxide 25 mmol/L (23-31); Chloride 105 mmol/L (98-107); Glucose 183 mg/dL (80-115); Potassium 3.6 mmol/L (3.5-5.1); Sodium 139 mmol/L (136-145)
[2020-12-28] MEDS: Levothyroxine Sodium 100 MCG TAB PO SCH (06:07)
[2020-12-28] MEDS: Budesonide 0.5 MG/2 ML NEB NEB SCH ×2 (08:11→19:42)
[2020-12-28] MEDS: Enoxaparin Sodium 40 MG/0.4 ML SYRINGE SC SCH (08:27)
[2020-12-28] MEDS: GUAIFENESIN SF SOLN 200 MG/10 ML UDCUP PER TUBE SCH ×2 (08:27→23:53)
[2020-12-28] MEDS: Lantus 1000 UNITS/10 ML VIAL SC SCH ×2 (08:27→21:15)
[2020-12-28] MEDS: Lisinopril 10 MG TAB PO SCH ×2 (08:28→23:54)
[2020-12-28] MEDS: Amlodipine 10 MG TAB PO SCH (08:28)
[2020-12-28] MEDS: predniSONE 20 MG TAB PO SCH (08:28)
[2020-12-28] MEDS: Escitalopram Oxalate 20 mg Tablet PO SCH (08:28)
[2020-12-28] MEDS: Aspirin 81 mg Enteric Coated Tablet PO SCH (08:28)
[2020-12-28] MEDS: Lactinex Tablet PO SCH (08:28)
[2020-12-28] MEDS: Polyethylene Glycol 3350 17 GM Packet PO SCH (08:29)
[2020-12-28] MEDS: Multivit, Therapeutic 1 TAB PO SCH (08:29)
[2020-12-28] MEDS: Famotidine 20 MG TAB PO SCH ×2 (08:29→23:54)
[2020-12-28] MEDS: Boudreaux's Butt Paste 60 GM TUBE TOP SCH ×4 (09:18→23:54)
[2020-12-28] MEDS: ALPRAZolam 0.5 MG TAB PO PRN (09:32)
[2020-12-28] MEDS: Loperamide HCl 2 MG CAP PO PRN (09:32)
[2020-12-28] MEDS: Mirtazapine 15 MG TAB PO SCH (23:54)
[2020-12-29] MEDS: Levothyroxine Sodium 100 MCG TAB PO SCH (05:48)
[2020-12-29] MEDS: Budesonide 0.5 MG/2 ML NEB NEB SCH ×2 (09:11→18:30)
[2020-12-29] MEDS: Boudreaux's Butt Paste 60 GM TUBE TOP SCH ×4 (10:08→22:55)
[2020-12-29] MEDS: ALPRAZolam 0.5 MG TAB PO PRN (10:08)
[2020-12-29] MEDS: Diphenoxylate HCl/Atropine Tablet PO PRN (10:08)
[2020-12-29] MEDS: Lactinex Tablet PO SCH (10:09)
[2020-12-29] MEDS: predniSONE 20 MG TAB PO SCH (10:09)
[2020-12-29] MEDS: Amlodipine 10 MG TAB PO SCH (10:09)
[2020-12-29] MEDS: Lisinopril 10 MG TAB PO SCH ×2 (10:09→22:55)
[2020-12-29] MEDS: Enoxaparin Sodium 40 MG/0.4 ML SYRINGE SC SCH (10:10)
[2020-12-29] MEDS: Lantus 1000 UNITS/10 ML VIAL SC SCH ×2 (10:10→23:42)
[2020-12-29] MEDS: Aspirin 81 mg Enteric Coated Tablet PO SCH (10:10)
[2020-12-29] MEDS: Famotidine 20 MG TAB PO SCH ×2 (10:10→22:54)
[2020-12-29] MEDS: Escitalopram Oxalate 20 mg Tablet PO SCH (10:10)
[2020-12-29] MEDS: Multivit, Therapeutic 1 TAB PO SCH (10:10)
[2020-12-29] MEDS: Polyethylene Glycol 3350 17 GM Packet PO SCH (10:11)
[2020-12-29] MEDS: GUAIFENESIN SF SOLN 200 MG/10 ML UDCUP PER TUBE SCH ×2 (10:12→22:55)
[2020-12-29] MEDS: HumaLOG 300 UNITS/3 ML VIAL SC PRN (18:22)
[2020-12-29] MEDS: Mirtazapine 15 MG TAB PO SCH (22:54)
[2020-12-30] MEDS: ALPRAZolam 0.5 MG TAB PO PRN ×3 (02:27→20:40)
[2020-12-30] MEDS: Levothyroxine Sodium 100 MCG TAB PO SCH (05:27)
[2020-12-30] MEDS: Budesonide 0.5 MG/2 ML NEB NEB SCH ×2 (06:45→18:26)
[2020-12-30] MEDS: Boudreaux's Butt Paste 60 GM TUBE TOP SCH ×4 (08:06→20:43)
[2020-12-30] MEDS: Escitalopram Oxalate 20 mg Tablet PO SCH (08:06)
[2020-12-30] MEDS: Lactinex Tablet PO SCH (08:06)
[2020-12-30] MEDS: Aspirin 81 mg Enteric Coated Tablet PO SCH (08:06)
[2020-12-30] MEDS: Lisinopril 10 MG TAB PO SCH ×2 (08:06→20:40)
[2020-12-30] MEDS: Amlodipine 10 MG TAB PO SCH (08:07)
[2020-12-30] MEDS: predniSONE 20 MG TAB PO SCH (08:07)
[2020-12-30] MEDS: Famotidine 20 MG TAB PO SCH ×2 (08:07→20:40)
[2020-12-30] MEDS: Multivit, Therapeutic 1 TAB PO SCH (08:08)
[2020-12-30] MEDS: Enoxaparin Sodium 40 MG/0.4 ML SYRINGE SC SCH (08:08)
[2020-12-30] MEDS: Polyethylene Glycol 3350 17 GM Packet PO SCH (08:09)
[2020-12-30] MEDS: GUAIFENESIN SF SOLN 200 MG/10 ML UDCUP PER TUBE SCH ×2 (08:10→20:40)
[2020-12-30] MEDS: Lantus 1000 UNITS/10 ML VIAL SC SCH ×2 (09:19→20:40)
[2020-12-30 12:24] LABS: SARS-CoV-2 PCR by NAA Not Detected (NotDetected)
[2020-12-30] MEDS: Mirtazapine 15 MG TAB PO SCH (20:40)
[2020-12-30] MEDS: Diphenoxylate HCl/Atropine Tablet PO PRN (20:40)
[2020-12-30] MEDS: HYDROcodone/Acetaminophen 5/325 mg Tablet PO PRN (20:42)
[2020-12-31] MEDS: Levothyroxine Sodium 100 MCG TAB PO SCH (05:43)
[2020-12-31] MEDS: HYDROcodone/Acetaminophen 5/325 mg Tablet PO PRN ×2 (05:45→18:05)
[2020-12-31] MEDS: Budesonide 0.5 MG/2 ML NEB NEB SCH ×2 (07:28→20:19)
[2020-12-31] MEDS: Enoxaparin Sodium 40 MG/0.4 ML SYRINGE SC SCH (07:56)
[2020-12-31] MEDS: GUAIFENESIN SF SOLN 200 MG/10 ML UDCUP PER TUBE SCH ×2 (07:56→20:37)
[2020-12-31] MEDS: Lantus 1000 UNITS/10 ML VIAL SC SCH ×2 (07:57→20:37)
[2020-12-31] MEDS: predniSONE 20 MG TAB PO SCH (07:57)
[2020-12-31] MEDS: Amlodipine 10 MG TAB PO SCH (07:57)
[2020-12-31] MEDS: Multivit, Therapeutic 1 TAB PO SCH (07:57)
[2020-12-31] MEDS: ALPRAZolam 0.5 MG TAB PO PRN ×2 (07:57→18:05)
[2020-12-31] MEDS: Aspirin 81 mg Enteric Coated Tablet PO SCH (07:57)
[2020-12-31] MEDS: Lisinopril 10 MG TAB PO SCH ×2 (07:58→20:37)
[2020-12-31] MEDS: Escitalopram Oxalate 20 mg Tablet PO SCH (07:59)
[2020-12-31] MEDS: Famotidine 20 MG TAB PO SCH ×2 (07:59→20:37)
[2020-12-31] MEDS: Boudreaux's Butt Paste 60 GM TUBE TOP SCH ×4 (07:59→20:38)
[2020-12-31] MEDS: Lactinex Tablet PO SCH (08:10)
[2020-12-31] MEDS: Polyethylene Glycol 3350 17 GM Packet PO SCH (09:48)
[2020-12-31] MEDS: HumaLOG 300 UNITS/3 ML VIAL SC PRN (18:24)
[2020-12-31] MEDS: Mirtazapine 15 MG TAB PO SCH (20:37)
[2021-01-01 02:35] LABS: Bacteria/HPF 2+ HPF (None Seen); Bilirubin Negative (Negative); Blood, Urine Negative (Negative); Clarity Turbid (Clear); Glucose, Urine (Dipstick) Normal (Negative); Ketone, Urine Negative (Negative); Leukocyte 500 Leu/uL (Negative); Nitrite 1+ (Negative); Protein, Urine (Dipstick) Negative (Neg-Trace); RBC/HPF 0-3 HPF (0-3); Specific Gravity, Urine 1.014 (1.002-1.036); Squamous Epithelial 0-3 HPF (0-3); Urobilinogen Normal mg/dL (Less than 2); WBC/HPF 21-50 HPF (0-3)
[2021-01-01] MEDS: Levothyroxine Sodium 100 MCG TAB PO SCH (06:02)
[2021-01-01] MEDS: Budesonide 0.5 MG/2 ML NEB NEB SCH (07:19)
[2021-01-01] MEDS: GUAIFENESIN SF SOLN 200 MG/10 ML UDCUP PER TUBE SCH ×2 (08:27→19:48)
[2021-01-01] MEDS: Enoxaparin Sodium 40 MG/0.4 ML SYRINGE SC SCH (08:27)
[2021-01-01] MEDS: ALPRAZolam 0.5 MG TAB PO PRN ×2 (08:28→17:00)
[2021-01-01] MEDS: Multivit, Therapeutic 1 TAB PO SCH (08:28)
[2021-01-01] MEDS: Famotidine 20 MG TAB PO SCH ×2 (08:28→19:46)
[2021-01-01] MEDS: predniSONE 20 MG TAB PO SCH (08:28)
[2021-01-01] MEDS: Lactinex Tablet PO SCH (08:28)
[2021-01-01] MEDS: Escitalopram Oxalate 20 mg Tablet PO SCH (08:28)
[2021-01-01] MEDS: Aspirin 81 mg Enteric Coated Tablet PO SCH (08:28)
[2021-01-01] MEDS: Amlodipine 10 MG TAB PO SCH (08:29)
[2021-01-01] MEDS: Lisinopril 10 MG TAB PO SCH ×2 (08:29→19:47)
[2021-01-01] MEDS: Boudreaux's Butt Paste 60 GM TUBE TOP SCH ×4 (08:32→19:48)
[2021-01-01] MEDS: Lantus 1000 UNITS/10 ML VIAL SC SCH ×2 (08:32→19:47)
[2021-01-01] MEDS: Polyethylene Glycol 3350 17 GM Packet PO SCH (09:46)
[2021-01-01] MEDS: Diphenoxylate HCl/Atropine Tablet PO PRN (11:00)
[2021-01-01] MEDS: HYDROcodone/Acetaminophen 5/325 mg Tablet PO PRN ×2 (11:00→16:59)
[2021-01-01 11:13] LABS: #Eosinphils 0.3 thou/uL (0.0-0.7); #Lymphocytes 1.1 thou/uL (1.20-3.40); #Monocytes 0.9 thou/uL (0.11-0.59); #Neutrophils 11.4 thou/uL (1.40-6.50); %Basophils 0.2 % (0.0-1.0); %Eosinophils 2.4 % (0.0-10.0); %Lymphocytes 8.2 % (21.0-51.0); %Monocytes 6.4 % (0.0-10.0); %Neutrophils 82.8 % (42.0-75.0); Mean Corpuscular HGB CONC 34.8 g/dL (32.0-36.0); Mean Platelet Volume 7.9 fL (7.4-10.4); Platelet Count 205 thou/uL (130-400); RBC Distribution Width 14.7 % (11.5-14.5); Red Blood Cell (RBC) Count 4.24 mill/uL (4.20-5.40); White Blood Cell (WBC) Count 13.7 thou/uL (4.8-10.8)
[2021-01-01 11:29] LABS: Anion Gap 16 mmol/L (10-20); BUN (Urea Nitrogen) 13 mg/dL (9.8-20.1); Calc. Creatinine Clearance 170 mL/min (70-130); Calcium 9.3 mg/dL (7.8-10.44); Carbon Dioxide 27 mmol/L (23-31); Chloride 100 mmol/L (98-107); Glucose 248 mg/dL (80-115); Sodium 139 mmol/L (136-145)
[2021-01-01] MEDS: HumaLOG 300 UNITS/3 ML VIAL SC PRN (12:12)
[2021-01-01] MEDS: Scopolamine 1.5 mg/72 hour Patch TD SCH (16:02)
[2021-01-01] MEDS: Loperamide HCl 2 MG CAP PO PRN (17:00)
[2021-01-01] MEDS: Mirtazapine 15 MG TAB PO SCH (19:46)
[2021-01-02] MEDS: Budesonide 0.5 MG/2 ML NEB NEB SCH ×3 (00:51→19:40)
[2021-01-02] MEDS: Levothyroxine Sodium 100 MCG TAB PO SCH (06:04)
[2021-01-02] MEDS: ALPRAZolam 0.5 MG TAB PO PRN ×2 (07:56→16:06)
[2021-01-02] MEDS: Amlodipine 10 MG TAB PO SCH (07:57)
[2021-01-02] MEDS: Aspirin 81 mg Enteric Coated Tablet PO SCH (07:57)
[2021-01-02] MEDS: Multivit, Therapeutic 1 TAB PO SCH (07:57)
[2021-01-02] MEDS: Lactinex Tablet PO SCH (07:57)
[2021-01-02] MEDS: Escitalopram Oxalate 20 mg Tablet PO SCH (07:57)
[2021-01-02] MEDS: Famotidine 20 MG TAB PO SCH ×2 (07:57→21:39)
[2021-01-02] MEDS: predniSONE 20 MG TAB PO SCH (07:58)
[2021-01-02] MEDS: GUAIFENESIN SF SOLN 200 MG/10 ML UDCUP PER TUBE SCH ×2 (07:58→21:39)
[2021-01-02] MEDS: Lisinopril 10 MG TAB PO SCH ×2 (07:58→21:38)
[2021-01-02] MEDS: Loperamide HCl 2 MG CAP PO PRN ×2 (07:58→16:06)
[2021-01-02] MEDS: Boudreaux's Butt Paste 60 GM TUBE TOP SCH ×4 (07:59→21:39)
[2021-01-02] MEDS: Lantus 1000 UNITS/10 ML VIAL SC SCH (07:59)
[2021-01-02] MEDS: Enoxaparin Sodium 40 MG/0.4 ML SYRINGE SC SCH (07:59)
[2021-01-02] MEDS ORDERED: Lantus 1000 UNITS/10 ML VIAL SC SCH ×2 (09:00)
[2021-01-02] MEDS: Polyethylene Glycol 3350 17 GM Packet PO SCH (11:31)
[2021-01-02] MEDS: HumaLOG 300 UNITS/3 ML VIAL SC PRN (12:17)
[2021-01-02] MEDS: HYDROcodone/Acetaminophen 5/325 mg Tablet PO PRN (16:06)
[2021-01-02] MEDS: Mirtazapine 15 MG TAB PO SCH (21:39)
[2021-01-03] MEDS: Levothyroxine Sodium 100 MCG TAB PO SCH (05:48)
[2021-01-03] MEDS: Budesonide 0.5 MG/2 ML NEB NEB SCH ×2 (07:17→18:03)
[2021-01-03] MEDS: ALPRAZolam 0.5 MG TAB PO PRN ×3 (08:22→21:46)
[2021-01-03] MEDS: predniSONE 20 MG TAB PO SCH (08:22)
[2021-01-03] MEDS: Aspirin 81 mg Enteric Coated Tablet PO SCH (08:22)
[2021-01-03] MEDS: Escitalopram Oxalate 20 mg Tablet PO SCH (08:22)
[2021-01-03] MEDS: Amlodipine 10 MG TAB PO SCH (08:22)
[2021-01-03] MEDS: HYDROcodone/Acetaminophen 5/325 mg Tablet PO PRN ×2 (08:23→16:07)
[2021-01-03] MEDS: Loperamide HCl 2 MG CAP PO PRN (08:23)
[2021-01-03] MEDS: Famotidine 20 MG TAB PO SCH ×2 (08:23→21:16)
[2021-01-03] MEDS: Multivit, Therapeutic 1 TAB PO SCH (08:24)
[2021-01-03] MEDS: Enoxaparin Sodium 40 MG/0.4 ML SYRINGE SC SCH (08:24)
[2021-01-03] MEDS: Boudreaux's Butt Paste 60 GM TUBE TOP SCH ×4 (08:24→21:17)
[2021-01-03] MEDS: Polyethylene Glycol 3350 17 GM Packet PO SCH (08:25)
[2021-01-03] MEDS: Lantus 1000 UNITS/10 ML VIAL SC SCH (08:25)
[2021-01-03] MEDS: Lisinopril 10 MG TAB PO SCH ×2 (08:27→21:16)
[2021-01-03] MEDS: GUAIFENESIN SF SOLN 200 MG/10 ML UDCUP PER TUBE SCH ×2 (10:51→21:16)
[2021-01-03] MEDS: Lactinex Tablet PO SCH (10:51)
[2021-01-03] MEDS: HumaLOG 300 UNITS/3 ML VIAL SC PRN (13:05)
[2021-01-03] MEDS: Mirtazapine 15 MG TAB PO SCH (21:16)
[2021-01-04] MEDS: Levothyroxine Sodium 100 MCG TAB PO SCH (04:44)
[2021-01-04] MEDS: Amlodipine 10 MG TAB PO SCH (08:10)
[2021-01-04] MEDS: Aspirin 81 mg Enteric Coated Tablet PO SCH (08:10)
[2021-01-04] MEDS: Lactinex Tablet PO SCH (08:10)
[2021-01-04] MEDS: Multivit, Therapeutic 1 TAB PO SCH (08:10)
[2021-01-04] MEDS: Lisinopril 10 MG TAB PO SCH ×2 (08:11→21:23)
[2021-01-04] MEDS: ALPRAZolam 0.5 MG TAB PO PRN (08:12)
[2021-01-04] MEDS: HYDROcodone/Acetaminophen 5/325 mg Tablet PO PRN (08:12)
[2021-01-04] MEDS: Loperamide HCl 2 MG CAP PO PRN (08:12)
[2021-01-04] MEDS: Escitalopram Oxalate 20 mg Tablet PO SCH (08:12)
[2021-01-04] MEDS: Famotidine 20 MG TAB PO SCH ×2 (08:12→21:23)
[2021-01-04] MEDS: predniSONE 20 MG TAB PO SCH (08:12)
[2021-01-04] MEDS: Enoxaparin Sodium 40 MG/0.4 ML SYRINGE SC SCH (08:13)
[2021-01-04] MEDS: Boudreaux's Butt Paste 60 GM TUBE TOP SCH ×4 (08:13→21:21)
[2021-01-04] MEDS: Polyethylene Glycol 3350 17 GM Packet PO SCH (08:14)
[2021-01-04] MEDS: GUAIFENESIN SF SOLN 200 MG/10 ML UDCUP PER TUBE SCH ×2 (08:19→21:22)
[2021-01-04] MEDS: Lantus 1000 UNITS/10 ML VIAL SC SCH (08:19)
[2021-01-04] MEDS: Budesonide 0.5 MG/2 ML NEB NEB SCH ×2 (08:50→18:37)
[2021-01-04] MEDS: Scopolamine 1.5 mg/72 hour Patch TD SCH (15:55)
[2021-01-04] MEDS: HumaLOG 300 UNITS/3 ML VIAL SC PRN (16:48)
[2021-01-04] MEDS: Mirtazapine 15 MG TAB PO SCH (21:22)
[2021-01-05 04:12] LABS: #Eosinphils 0.3 thou/uL (0.0-0.7); #Lymphocytes 1.8 thou/uL (1.20-3.40); #Monocytes 0.7 thou/uL (0.11-0.59); #Neutrophils 4.3 thou/uL (1.40-6.50); %Basophils 0.7 % (0.0-1.0); %Eosinophils 4.2 % (0.0-10.0); %Lymphocytes 25.5 % (21.0-51.0); %Monocytes 9.1 % (0.0-10.0); %Neutrophils 60.6 % (42.0-75.0); Hemoglobin 12.5 g/dL (12.0-16.0); Mean Corpuscular HGB CONC 34.4 g/dL (32.0-36.0); Mean Corpuscular Hemoglobin 32.8 pg (27.0-31.0); Mean Corpuscular Volume 95.2 fL (78.0-98.0); Mean Platelet Volume 7.4 fL (7.4-10.4); Platelet Count 202 thou/uL (130-400); Red Blood Cell (RBC) Count 3.83 mill/uL (4.20-5.40); White Blood Cell (WBC) Count 7.1 thou/uL (4.8-10.8)
[2021-01-05 04:39] LABS: Anion Gap 13 mmol/L (10-20); BUN (Urea Nitrogen) 11 mg/dL (9.8-20.1); Calc. Creatinine Clearance 211 mL/min (70-130); Calcium 9.1 mg/dL (7.8-10.44); Carbon Dioxide 30 mmol/L (23-31); Chloride 103 mmol/L (98-107); Glucose 108 mg/dL (80-115); Potassium 3.4 mmol/L (3.5-5.1); Sodium 143 mmol/L (136-145)
[2021-01-05] MEDS: Levothyroxine Sodium 100 MCG TAB PO SCH (05:39)
[2021-01-05] MEDS ORDERED: Potassium Chloride 20 MEQ TAB PER TUBE SCH (08:00)
[2021-01-05 08:38] LABS: Magnesium 1.9 mg/dL (1.6-2.6)
[2021-01-05] MEDS ORDERED: HYDROcodone/Acetaminophen 5/325 mg Tablet PO PRN (08:46)
[2021-01-05] MEDS ORDERED: Magnesium 2 GM/50 ML 2 GM in Premix Bag 1 BAG IVPB SCH (09:00)
[2021-01-05] MEDS: Boudreaux's Butt Paste 60 GM TUBE TOP SCH ×2 (09:00→12:01)
[2021-01-05] MEDS: Lisinopril 10 MG TAB PO SCH ×2 (09:20→21:51)
[2021-01-05] MEDS: predniSONE 20 MG TAB PO SCH (09:20)
[2021-01-05] MEDS: Amlodipine 10 MG TAB PO SCH (09:20)
[2021-01-05] MEDS: Lactinex Tablet PO SCH (09:20)
[2021-01-05] MEDS: GUAIFENESIN SF SOLN 200 MG/10 ML UDCUP PER TUBE SCH ×2 (09:20→21:51)
[2021-01-05] MEDS: Aspirin 81 mg Enteric Coated Tablet PO SCH (09:20)
[2021-01-05] MEDS: Escitalopram Oxalate 20 mg Tablet PO SCH (09:21)
[2021-01-05] MEDS: Pantoprazole 40 MG GRANULES PACKET PER TUBE SCH (09:21)
[2021-01-05] MEDS: Multivit, Therapeutic 1 TAB PO SCH (09:21)
[2021-01-05] MEDS: Lantus 1000 UNITS/10 ML VIAL SC SCH (09:22)
[2021-01-05] MEDS: Polyethylene Glycol 3350 17 GM Packet PO SCH (09:22)
[2021-01-05] MEDS: Enoxaparin Sodium 40 MG/0.4 ML SYRINGE SC SCH (09:22)
[2021-01-05] MEDS: Budesonide 0.5 MG/2 ML NEB NEB SCH ×2 (09:52→18:00)
[2021-01-05] MEDS: HumaLOG 300 UNITS/3 ML VIAL SC PRN (11:56)
[2021-01-05] MEDS: ALPRAZolam 0.25 MG TAB PO PRN ×2 (11:59→21:51)
[2021-01-05] MEDS: Loperamide HCl 2 MG CAP PO PRN (11:59)
[2021-01-05] MEDS: Zinc Oxide 20% Oint 30 GM TUBE TOP SCH ×2 (19:18→21:52)
[2021-01-05] MEDS: Magnesium Oxide 400 MG TAB PER TUBE SCH (21:51)
[2021-01-05] MEDS: Mirtazapine 15 MG TAB PO SCH (21:51)
[2021-01-06] MEDS: Levothyroxine Sodium 100 MCG TAB PO SCH (05:23)
[2021-01-06] MEDS: Budesonide 0.5 MG/2 ML NEB NEB SCH ×3 (08:42→18:16)
[2021-01-06] MEDS: Lactinex Tablet PO SCH (09:42)
[2021-01-06] MEDS: predniSONE 20 MG TAB PO SCH (09:42)
[2021-01-06] MEDS: Amlodipine 10 MG TAB PO SCH (09:42)
[2021-01-06] MEDS: Magnesium Oxide 400 MG TAB PER TUBE SCH ×2 (09:42→20:40)
[2021-01-06] MEDS: Pantoprazole 40 MG GRANULES PACKET PER TUBE SCH (09:42)
[2021-01-06] MEDS: GUAIFENESIN SF SOLN 200 MG/10 ML UDCUP PER TUBE SCH ×2 (09:42→20:40)
[2021-01-06] MEDS: Multivit, Therapeutic 1 TAB PO SCH (09:43)
[2021-01-06] MEDS: Lisinopril 10 MG TAB PO SCH ×2 (09:43→20:40)
[2021-01-06] MEDS: Aspirin 81 mg Enteric Coated Tablet PO SCH (09:43)
[2021-01-06] MEDS: Polyethylene Glycol 3350 17 GM Packet PO SCH (09:43)
[2021-01-06] MEDS: ALPRAZolam 0.25 MG TAB PO PRN ×2 (09:43→20:40)
[2021-01-06] MEDS: Escitalopram Oxalate 20 mg Tablet PO SCH (09:43)
[2021-01-06] MEDS: Lantus 1000 UNITS/10 ML VIAL SC SCH (09:46)
[2021-01-06] MEDS: Enoxaparin Sodium 40 MG/0.4 ML SYRINGE SC SCH (09:46)
[2021-01-06] MEDS: Zinc Oxide 20% Oint 30 GM TUBE TOP SCH ×4 (09:47→20:40)
[2021-01-06] MEDS ORDERED: Sodium Chloride 0.9% 15 ML NEB ONE (11:44)
[2021-01-06 17:31] LABS: SARS-CoV-2 PCR by NAA Not Detected (NotDetected)
[2021-01-06] MEDS: Mirtazapine 15 MG TAB PO SCH (20:40)
[2021-01-06] MEDS: Loperamide HCl 2 MG CAP PO PRN (20:42)
[2021-01-07] MEDS: Levothyroxine Sodium 100 MCG TAB PO SCH (06:01)
[2021-01-07] MEDS: Budesonide 0.5 MG/2 ML NEB NEB SCH ×2 (07:45→18:17)
[2021-01-07] MEDS: Enoxaparin Sodium 40 MG/0.4 ML SYRINGE SC SCH (08:55)
[2021-01-07] MEDS: Lantus 1000 UNITS/10 ML VIAL SC SCH (08:56)
[2021-01-07] MEDS: predniSONE 20 MG TAB PO SCH (08:57)
[2021-01-07] MEDS: ALPRAZolam 0.25 MG TAB PO PRN ×2 (08:57→20:37)
[2021-01-07] MEDS: Aspirin 81 mg Enteric Coated Tablet PO SCH (08:57)
[2021-01-07] MEDS: Multivit, Therapeutic 1 TAB PO SCH (08:58)
[2021-01-07] MEDS: Amlodipine 10 MG TAB PO SCH (08:58)
[2021-01-07] MEDS: Loperamide HCl 2 MG CAP PO PRN ×2 (08:58→20:36)
[2021-01-07] MEDS: Pantoprazole 40 MG GRANULES PACKET PER TUBE SCH (08:58)
[2021-01-07] MEDS: Lactinex Tablet PO SCH (08:58)
[2021-01-07] MEDS: Escitalopram Oxalate 20 mg Tablet PO SCH (08:58)
[2021-01-07] MEDS: Magnesium Oxide 400 MG TAB PER TUBE SCH ×2 (08:58→20:37)
[2021-01-07] MEDS: Lisinopril 10 MG TAB PO SCH ×2 (09:08→20:36)
[2021-01-07] MEDS: Zinc Oxide 20% Oint 30 GM TUBE TOP SCH ×4 (09:09→20:38)
[2021-01-07] MEDS: GUAIFENESIN SF SOLN 200 MG/10 ML UDCUP PER TUBE SCH ×2 (09:11→20:36)
[2021-01-07] MEDS: Polyethylene Glycol 3350 17 GM Packet PO SCH (10:25)
[2021-01-07] MEDS: Mirtazapine 15 MG TAB PO SCH (20:36)
[2021-01-07] MEDS: Acetaminophen 325 MG TAB PO PRN (20:37)
[2021-01-08 03:53] LABS: #Basophils 0.1 thou/uL (0.0-0.2); #Eosinphils 0.1 thou/uL (0.0-0.7); #Lymphocytes 2.1 thou/uL (1.20-3.40); #Monocytes 0.7 thou/uL (0.11-0.59); #Neutrophils 3.7 thou/uL (1.40-6.50); %Basophils 0.9 % (0.0-1.0); %Eosinophils 2.1 % (0.0-10.0); %Lymphocytes 31.4 % (21.0-51.0); %Monocytes 10.6 % (0.0-10.0); Hemoglobin 12.7 g/dL (12.0-16.0); Mean Corpuscular HGB CONC 34.8 g/dL (32.0-36.0); Mean Corpuscular Hemoglobin 33.4 pg (27.0-31.0); Mean Corpuscular Volume 95.9 fL (78.0-98.0); Mean Platelet Volume 7.1 fL (7.4-10.4); Platelet Count 216 thou/uL (130-400); RBC Distribution Width 15.1 % (11.5-14.5); White Blood Cell (WBC) Count 6.8 thou/uL (4.8-10.8)
[2021-01-08 04:12] LABS: Anion Gap 12 mmol/L (10-20); BUN (Urea Nitrogen) 12 mg/dL (9.8-20.1); Calc. Creatinine Clearance 207 mL/min (70-130); Carbon Dioxide 29 mmol/L (23-31); Chloride 104 mmol/L (98-107); Potassium 3.7 mmol/L (3.5-5.1); Sodium 141 mmol/L (136-145)
[2021-01-08 04:13] LABS: Calcium 9.2 mg/dL (7.8-10.44); Glucose 104 mg/dL (80-115)
[2021-01-08] MEDS: Levothyroxine Sodium 100 MCG TAB PO SCH (05:51)
[2021-01-08] MEDS: Lantus 1000 UNITS/10 ML VIAL SC SCH (08:00)
[2021-01-08] MEDS: Magnesium Oxide 400 MG TAB PER TUBE SCH ×2 (08:00→21:08)
[2021-01-08] MEDS: predniSONE 20 MG TAB PO SCH (08:00)
[2021-01-08] MEDS: Enoxaparin Sodium 40 MG/0.4 ML SYRINGE SC SCH (08:00)
[2021-01-08] MEDS: ALPRAZolam 0.25 MG TAB PO PRN ×2 (08:00→21:08)
[2021-01-08] MEDS: Amlodipine 10 MG TAB PO SCH (08:00)
[2021-01-08] MEDS: Aspirin 81 mg Enteric Coated Tablet PO SCH (08:01)
[2021-01-08] MEDS: Loperamide HCl 2 MG CAP PO PRN ×2 (08:01→21:08)
[2021-01-08] MEDS: Lisinopril 10 MG TAB PO SCH ×2 (08:01→21:12)
[2021-01-08] MEDS: Multivit, Therapeutic 1 TAB PO SCH (08:01)
[2021-01-08] MEDS: Lactinex Tablet PO SCH (08:01)
[2021-01-08] MEDS: Pantoprazole 40 MG GRANULES PACKET PER TUBE SCH (08:01)
[2021-01-08] MEDS: Escitalopram Oxalate 20 mg Tablet PO SCH (08:01)
[2021-01-08] MEDS: GUAIFENESIN SF SOLN 200 MG/10 ML UDCUP PER TUBE SCH ×2 (08:01→21:08)
[2021-01-08] MEDS: Zinc Oxide 20% Oint 30 GM TUBE TOP SCH ×4 (08:15→21:12)
[2021-01-08] MEDS: Polyethylene Glycol 3350 17 GM Packet PO SCH (09:53)
[2021-01-08] MEDS: HumaLOG 300 UNITS/3 ML VIAL SC PRN (12:49)
[2021-01-08] MEDS: Budesonide 0.5 MG/2 ML NEB NEB SCH ×2 (13:03→19:15)
[2021-01-08] MEDS: Mirtazapine 15 MG TAB PO SCH (21:08)
[2021-01-09] MEDS: Acetaminophen 325 MG TAB PO PRN (00:43)
[2021-01-09] MEDS: Levothyroxine Sodium 100 MCG TAB PO SCH (05:56)
[2021-01-09] MEDS: predniSONE 20 MG TAB PO SCH (08:48)
[2021-01-09] MEDS: Multivit, Therapeutic 1 TAB PO SCH (08:48)
[2021-01-09] MEDS: ALPRAZolam 0.25 MG TAB PO PRN ×2 (08:48→21:11)
[2021-01-09] MEDS: Enoxaparin Sodium 40 MG/0.4 ML SYRINGE SC SCH (08:48)
[2021-01-09] MEDS: Amlodipine 10 MG TAB PO SCH (08:49)
[2021-01-09] MEDS: Magnesium Oxide 400 MG TAB PER TUBE SCH ×2 (08:49→21:11)
[2021-01-09] MEDS: Loperamide HCl 2 MG CAP PO PRN ×2 (08:49→21:11)
[2021-01-09] MEDS: Lisinopril 10 MG TAB PO SCH ×2 (08:49→21:11)
[2021-01-09] MEDS: Pantoprazole 40 MG GRANULES PACKET PER TUBE SCH (08:49)
[2021-01-09] MEDS: Aspirin 81 mg Enteric Coated Tablet PO SCH (08:49)
[2021-01-09] MEDS: Escitalopram Oxalate 20 mg Tablet PO SCH (08:49)
[2021-01-09] MEDS: Polyethylene Glycol 3350 17 GM Packet PO SCH (08:50)
[2021-01-09] MEDS: Lactinex Tablet PO SCH (08:50)
[2021-01-09] MEDS: Budesonide 0.5 MG/2 ML NEB NEB SCH ×2 (10:00→18:23)
[2021-01-09] MEDS: Lantus 1000 UNITS/10 ML VIAL SC SCH (10:28)
[2021-01-09] MEDS: Zinc Oxide 20% Oint 30 GM TUBE TOP SCH ×4 (10:30→21:12)
[2021-01-09] MEDS: GUAIFENESIN SF SOLN 200 MG/10 ML UDCUP PER TUBE SCH ×2 (10:30→21:11)
[2021-01-09] MEDS: Mirtazapine 15 MG TAB PO SCH (21:11)
[2021-01-10] MEDS: Levothyroxine Sodium 100 MCG TAB PO SCH (06:14)
[2021-01-10] MEDS: Budesonide 0.5 MG/2 ML NEB NEB SCH ×2 (07:59→18:13)
[2021-01-10] MEDS: Aspirin 81 mg Enteric Coated Tablet PO SCH (08:41)
[2021-01-10] MEDS: Loperamide HCl 2 MG CAP PO PRN ×2 (08:41→21:52)
[2021-01-10] MEDS: Pantoprazole 40 MG GRANULES PACKET PER TUBE SCH (08:41)
[2021-01-10] MEDS: Lactinex Tablet PO SCH (08:41)
[2021-01-10] MEDS: Amlodipine 10 MG TAB PO SCH (08:41)
[2021-01-10] MEDS: ALPRAZolam 0.25 MG TAB PO PRN ×2 (08:41→21:53)
[2021-01-10] MEDS: Lisinopril 10 MG TAB PO SCH ×2 (08:41→21:52)
[2021-01-10] MEDS: Multivit, Therapeutic 1 TAB PO SCH (08:41)
[2021-01-10] MEDS: Magnesium Oxide 400 MG TAB PER TUBE SCH ×2 (08:41→21:52)
[2021-01-10] MEDS: GUAIFENESIN SF SOLN 200 MG/10 ML UDCUP PER TUBE SCH ×2 (08:41→21:53)
[2021-01-10] MEDS: Enoxaparin Sodium 40 MG/0.4 ML SYRINGE SC SCH (08:41)
[2021-01-10] MEDS: Escitalopram Oxalate 20 mg Tablet PO SCH (08:42)
[2021-01-10] MEDS: predniSONE 20 MG TAB PO SCH (08:42)
[2021-01-10] MEDS: Zinc Oxide 20% Oint 30 GM TUBE TOP SCH ×4 (08:44→21:53)
[2021-01-10] MEDS: Lantus 1000 UNITS/10 ML VIAL SC SCH (08:44)
[2021-01-10] MEDS: Polyethylene Glycol 3350 17 GM Packet PO SCH (09:08)
[2021-01-10] MEDS: HumaLOG 300 UNITS/3 ML VIAL SC PRN (16:32)
[2021-01-10] MEDS: Mirtazapine 15 MG TAB PO SCH (21:52)
[2021-01-11] MEDS: Levothyroxine Sodium 100 MCG TAB PO SCH (05:22)
[2021-01-11] MEDS: Loperamide HCl 2 MG CAP PO PRN ×2 (05:22→08:39)
[2021-01-11] MEDS: Budesonide 0.5 MG/2 ML NEB NEB SCH ×2 (07:09→19:33)
[2021-01-11] MEDS: Lisinopril 10 MG TAB PO SCH ×2 (08:39→21:47)
[2021-01-11] MEDS: Lactinex Tablet PO SCH (08:40)
[2021-01-11] MEDS: Escitalopram Oxalate 20 mg Tablet PO SCH (08:40)
[2021-01-11] MEDS: ALPRAZolam 0.25 MG TAB PO PRN ×2 (08:40→21:47)
[2021-01-11] MEDS: Aspirin 81 mg Enteric Coated Tablet PO SCH (08:40)
[2021-01-11] MEDS: Magnesium Oxide 400 MG TAB PER TUBE SCH ×2 (08:40→21:48)
[2021-01-11] MEDS: Enoxaparin Sodium 40 MG/0.4 ML SYRINGE SC SCH (08:40)
[2021-01-11] MEDS: predniSONE 20 MG TAB PO SCH (08:40)
[2021-01-11] MEDS: Multivit, Therapeutic 1 TAB PO SCH (08:40)
[2021-01-11] MEDS: Amlodipine 10 MG TAB PO SCH (08:40)
[2021-01-11] MEDS: Zinc Oxide 20% Oint 30 GM TUBE TOP SCH ×4 (08:41→21:48)
[2021-01-11] MEDS: Pantoprazole 40 MG GRANULES PACKET PER TUBE SCH (08:41)
[2021-01-11] MEDS: Polyethylene Glycol 3350 17 GM Packet PO SCH (08:41)
[2021-01-11] MEDS: Lantus 1000 UNITS/10 ML VIAL SC SCH (08:41)
[2021-01-11] MEDS: GUAIFENESIN SF SOLN 200 MG/10 ML UDCUP PER TUBE SCH ×2 (08:57→21:47)
[2021-01-11] MEDS: HumaLOG 300 UNITS/3 ML VIAL SC PRN (16:45)
[2021-01-11] MEDS: Mirtazapine 15 MG TAB PO SCH (21:47)
[2021-01-12] MEDS: Levothyroxine Sodium 100 MCG TAB PO SCH (05:50)
[2021-01-12] MEDS: Budesonide 0.5 MG/2 ML NEB NEB SCH ×2 (07:29→18:17)
[2021-01-12] MEDS: Lactinex Tablet PO SCH (09:14)
[2021-01-12] MEDS: predniSONE 20 MG TAB PO SCH (09:14)
[2021-01-12] MEDS: Lisinopril 10 MG TAB PO SCH ×2 (09:15→21:35)
[2021-01-12] MEDS: Amlodipine 10 MG TAB PO SCH (09:15)
[2021-01-12] MEDS: Aspirin 81 mg Enteric Coated Tablet PO SCH (09:15)
[2021-01-12] MEDS: Pantoprazole 40 MG GRANULES PACKET PER TUBE SCH (09:15)
[2021-01-12] MEDS: Magnesium Oxide 400 MG TAB PER TUBE SCH ×2 (09:15→21:35)
[2021-01-12] MEDS: Multivit, Therapeutic 1 TAB PO SCH (09:15)
[2021-01-12] MEDS: Escitalopram Oxalate 20 mg Tablet PO SCH (09:16)
[2021-01-12] MEDS: Enoxaparin Sodium 40 MG/0.4 ML SYRINGE SC SCH (09:16)
[2021-01-12] MEDS: Zinc Oxide 20% Oint 30 GM TUBE TOP SCH ×4 (09:17→21:37)
[2021-01-12] MEDS: Polyethylene Glycol 3350 17 GM Packet PO SCH (09:17)
[2021-01-12] MEDS: GUAIFENESIN SF SOLN 200 MG/10 ML UDCUP PER TUBE SCH ×2 (09:17→21:35)
[2021-01-12] MEDS: Lantus 1000 UNITS/10 ML VIAL SC SCH (09:18)
[2021-01-12] MEDS: Mirtazapine 15 MG TAB PO SCH (21:35)
[2021-01-12] MEDS: ALPRAZolam 0.25 MG TAB PO PRN (21:35)
[2021-01-12] MEDS: Loperamide HCl 2 MG CAP PO PRN (21:35)
[2021-01-13] MEDS: Levothyroxine Sodium 100 MCG TAB PO SCH (06:23)
[2021-01-13] MEDS: GUAIFENESIN SF SOLN 200 MG/10 ML UDCUP PER TUBE SCH ×2 (08:32→21:44)
[2021-01-13] MEDS: ALPRAZolam 0.25 MG TAB PO PRN ×2 (08:32→21:08)
[2021-01-13] MEDS: Zinc Oxide 20% Oint 30 GM TUBE TOP SCH ×4 (08:32→21:13)
[2021-01-13] MEDS: Amlodipine 10 MG TAB PO SCH (08:33)
[2021-01-13] MEDS: Aspirin 81 mg Enteric Coated Tablet PO SCH (08:33)
[2021-01-13] MEDS: predniSONE 20 MG TAB PO SCH (08:33)
[2021-01-13] MEDS: Escitalopram Oxalate 20 mg Tablet PO SCH (08:33)
[2021-01-13] MEDS: Lisinopril 10 MG TAB PO SCH ×2 (08:33→21:08)
[2021-01-13] MEDS: Lactinex Tablet PO SCH (08:34)
[2021-01-13] MEDS: Multivit, Therapeutic 1 TAB PO SCH (08:34)
[2021-01-13] MEDS: Magnesium Oxide 400 MG TAB PER TUBE SCH ×2 (08:34→21:08)
[2021-01-13] MEDS: Pantoprazole 40 MG GRANULES PACKET PER TUBE SCH (08:34)
[2021-01-13] MEDS: Loperamide HCl 2 MG CAP PO PRN ×2 (08:34→21:08)
[2021-01-13] MEDS: Enoxaparin Sodium 40 MG/0.4 ML SYRINGE SC SCH (08:35)
[2021-01-13] MEDS: Lantus 1000 UNITS/10 ML VIAL SC SCH (08:35)
[2021-01-13 09:02] LABS: Hemoglobin 13.4 g/dL (12.0-16.0); Mean Corpuscular HGB CONC 31.7 g/dL (32.0-36.0); Mean Corpuscular Hemoglobin 30.8 pg (27.0-31.0); Mean Platelet Volume 7.5 fL (7.4-10.4); Platelet Count 323 thou/uL (130-400); RBC Distribution Width 15.4 % (11.5-14.5); Red Blood Cell (RBC) Count 4.34 mill/uL (4.20-5.40); White Blood Cell (WBC) Count 8.2 thou/uL (4.8-10.8)
[2021-01-13 09:23] LABS: Phosphorus 3.8 mg/dL (2.3-4.7)
[2021-01-13 09:25] LABS: Anion Gap 13 mmol/L (10-20); BUN (Urea Nitrogen) 12 mg/dL (9.8-20.1); Calc. Creatinine Clearance 180 mL/min (70-130); Calcium 9.4 mg/dL (7.8-10.44); Carbon Dioxide 27 mmol/L (23-31); Chloride 104 mmol/L (98-107); Glucose 170 mg/dL (80-115); Magnesium 1.7 mg/dL (1.6-2.6); Potassium 3.4 mmol/L (3.5-5.1); Sodium 141 mmol/L (136-145)
[2021-01-13 09:51] LABS: Band 11 % (5-11); Eosinophils 1 % (0-10); Lymphocytes 25 % (21-51); MDiff Complete? YES; Metamyelocyte 4 % (0-0); Monocytes 5 % (0-10); Myelocyte 2 % (0-0); Neutrophil 51 % (42-75); Platelet Morphology Comment Appears Adequate; Polychromasia SLIGHT = 2-3 cells (100X) (0-2/hpf)
[2021-01-13] MEDS: Polyethylene Glycol 3350 17 GM Packet PO SCH (09:55)
[2021-01-13] MEDS: HumaLOG 300 UNITS/3 ML VIAL SC PRN (10:32)
[2021-01-13] MEDS: Budesonide 0.5 MG/2 ML NEB NEB SCH ×2 (12:20→19:43)
[2021-01-13] MEDS ORDERED: Potassium Chloride 20 MEQ TAB PO SCH (14:00)
[2021-01-13] MEDS ORDERED: Sodium Bicarbonate Tab 325 MG TAB PER TUBE PRN (17:45)
[2021-01-13] MEDS: Mirtazapine 15 MG TAB PO SCH (21:08)
[2021-01-14] MEDS: Levothyroxine Sodium 100 MCG TAB PO SCH (05:05)
[2021-01-14] MEDS: ALPRAZolam 0.25 MG TAB PO PRN (07:59)
[2021-01-14] MEDS: predniSONE 20 MG TAB PO SCH (07:59)
[2021-01-14] MEDS: Loperamide HCl 2 MG CAP PO PRN ×2 (08:00→12:14)
[2021-01-14] MEDS: Escitalopram Oxalate 20 mg Tablet PO SCH (08:00)
[2021-01-14] MEDS: Magnesium Oxide 400 MG TAB PER TUBE SCH ×2 (08:00→20:21)
[2021-01-14] MEDS: Amlodipine 10 MG TAB PO SCH (08:00)
[2021-01-14] MEDS: Lactinex Tablet PO SCH (08:00)
[2021-01-14] MEDS: Aspirin 81 mg Enteric Coated Tablet PO SCH (08:00)
[2021-01-14] MEDS: Multivit, Therapeutic 1 TAB PO SCH (08:01)
[2021-01-14] MEDS: Pantoprazole 40 MG GRANULES PACKET PER TUBE SCH (08:01)
[2021-01-14] MEDS: Lisinopril 10 MG TAB PO SCH ×2 (08:01→20:22)
[2021-01-14] MEDS: GUAIFENESIN SF SOLN 200 MG/10 ML UDCUP PER TUBE SCH ×2 (08:01→20:21)
[2021-01-14] MEDS: Lantus 1000 UNITS/10 ML VIAL SC SCH (08:01)
[2021-01-14] MEDS: Enoxaparin Sodium 40 MG/0.4 ML SYRINGE SC SCH (08:01)
[2021-01-14] MEDS: Zinc Oxide 20% Oint 30 GM TUBE TOP SCH ×4 (08:03→20:22)
[2021-01-14] MEDS: Polyethylene Glycol 3350 17 GM Packet PO SCH (08:34)
[2021-01-14] MEDS: Budesonide 0.5 MG/2 ML NEB NEB SCH ×2 (09:15→19:32)
[2021-01-14 13:14] LABS: SARS-CoV-2 PCR by NAA Not Detected (NotDetected)
[2021-01-14] MEDS: Acetaminophen 325 MG TAB PO PRN (14:20)
[2021-01-14] MEDS: Mirtazapine 15 MG TAB PO SCH (20:21)
[2021-01-15] MEDS: Levothyroxine Sodium 100 MCG TAB PO SCH (05:45)
[2021-01-15] MEDS ORDERED: Potassium Chloride 20 MEQ TAB PO SCH (08:30)
[2021-01-15] MEDS: Enoxaparin Sodium 40 MG/0.4 ML SYRINGE SC SCH (09:42)
[2021-01-15] MEDS: ALPRAZolam 0.25 MG TAB PO PRN ×2 (09:45→20:29)
[2021-01-15] MEDS: Magnesium Oxide 400 MG TAB PER TUBE SCH ×2 (09:45→20:29)
[2021-01-15] MEDS: Lisinopril 10 MG TAB PO SCH ×2 (09:45→20:30)
[2021-01-15] MEDS: Amlodipine 10 MG TAB PO SCH (09:45)
[2021-01-15] MEDS: Loperamide HCl 2 MG CAP PO PRN ×2 (09:45→15:50)
[2021-01-15] MEDS: GUAIFENESIN SF SOLN 200 MG/10 ML UDCUP PER TUBE SCH ×2 (09:45→20:29)
[2021-01-15] MEDS: Lactinex Tablet PO SCH (09:45)
[2021-01-15] MEDS: Aspirin 81 mg Enteric Coated Tablet PO SCH (09:46)
[2021-01-15] MEDS: Lantus 1000 UNITS/10 ML VIAL SC SCH (09:46)
[2021-01-15] MEDS: Multivit, Therapeutic 1 TAB PO SCH (09:46)
[2021-01-15] MEDS: Pantoprazole 40 MG GRANULES PACKET PER TUBE SCH (09:46)
[2021-01-15] MEDS: Escitalopram Oxalate 20 mg Tablet PO SCH (09:46)
[2021-01-15] MEDS: predniSONE 20 MG TAB PO SCH (09:47)
[2021-01-15] MEDS: Polyethylene Glycol 3350 17 GM Packet PO SCH (09:47)
[2021-01-15] MEDS: Zinc Oxide 20% Oint 30 GM TUBE TOP SCH (10:05)
[2021-01-15] MEDS ORDERED: Nystatin Powder 15 GM BOT TOP PRN (10:32)
[2021-01-15] MEDS: Budesonide 0.5 MG/2 ML NEB NEB SCH ×2 (10:40→18:30)
[2021-01-15] MEDS: Nystatin Cream 15 GM TUBE TOP SCH (20:29)
[2021-01-15] MEDS: Mirtazapine 15 MG TAB PO SCH (20:29)
[2021-01-16] MEDS: Levothyroxine Sodium 100 MCG TAB PO SCH (05:00)
[2021-01-16] MEDS: Loperamide HCl 2 MG CAP PO PRN ×3 (05:01→21:05)
[2021-01-16] MEDS: predniSONE 20 MG TAB PO SCH (10:01)
[2021-01-16] MEDS: Amlodipine 10 MG TAB PO SCH (10:02)
[2021-01-16] MEDS: Escitalopram Oxalate 20 mg Tablet PO SCH (10:06)
[2021-01-16] MEDS: Aspirin 81 mg Enteric Coated Tablet PO SCH (10:06)
[2021-01-16] MEDS: Enoxaparin Sodium 40 MG/0.4 ML SYRINGE SC SCH (10:06)
[2021-01-16] MEDS: GUAIFENESIN SF SOLN 200 MG/10 ML UDCUP PER TUBE SCH ×2 (10:06→21:05)
[2021-01-16] MEDS: Lantus 1000 UNITS/10 ML VIAL SC SCH (10:07)
[2021-01-16] MEDS: Magnesium Oxide 400 MG TAB PER TUBE SCH ×2 (10:07→21:05)
[2021-01-16] MEDS: Multivit, Therapeutic 1 TAB PO SCH (10:07)
[2021-01-16] MEDS: Pantoprazole 40 MG GRANULES PACKET PER TUBE SCH (10:08)
[2021-01-16] MEDS: Nystatin Cream 15 GM TUBE TOP SCH ×2 (10:08→21:05)
[2021-01-16] MEDS: Lisinopril 10 MG TAB PO SCH ×2 (10:09→21:05)
[2021-01-16] MEDS: Polyethylene Glycol 3350 17 GM Packet PO SCH (10:09)
[2021-01-16] MEDS: Lactinex Tablet PO SCH (10:13)
[2021-01-16] MEDS: Acetaminophen 325 MG TAB PO PRN (10:20)
[2021-01-16] MEDS: Budesonide 0.5 MG/2 ML NEB NEB SCH ×2 (11:47→18:48)
[2021-01-16] MEDS: HumaLOG 300 UNITS/3 ML VIAL SC PRN (17:11)
[2021-01-16] MEDS: ALPRAZolam 0.25 MG TAB PO PRN (21:05)
[2021-01-16] MEDS: Mirtazapine 15 MG TAB PO SCH (21:05)
[2021-01-17] MEDS: Levothyroxine Sodium 100 MCG TAB PO SCH (05:46)
[2021-01-17] MEDS: Budesonide 0.5 MG/2 ML NEB NEB SCH ×2 (07:26→19:31)
[2021-01-17] MEDS: Loperamide HCl 2 MG CAP PO PRN ×2 (09:03→22:32)
[2021-01-17] MEDS: GUAIFENESIN SF SOLN 200 MG/10 ML UDCUP PER TUBE SCH ×2 (09:03→22:32)
[2021-01-17] MEDS: ALPRAZolam 0.25 MG TAB PO PRN ×2 (09:04→22:31)
[2021-01-17] MEDS: Aspirin 81 mg Enteric Coated Tablet PO SCH (09:04)
[2021-01-17] MEDS: predniSONE 20 MG TAB PO SCH (09:04)
[2021-01-17] MEDS: Lactinex Tablet PO SCH (09:04)
[2021-01-17] MEDS: Escitalopram Oxalate 20 mg Tablet PO SCH (09:04)
[2021-01-17] MEDS: Pantoprazole 40 MG GRANULES PACKET PER TUBE SCH (09:04)
[2021-01-17] MEDS: Lisinopril 10 MG TAB PO SCH ×2 (09:04→22:31)
[2021-01-17] MEDS: Magnesium Oxide 400 MG TAB PER TUBE SCH ×2 (09:04→22:32)
[2021-01-17] MEDS: Multivit, Therapeutic 1 TAB PO SCH (09:04)
[2021-01-17] MEDS: Amlodipine 10 MG TAB PO SCH (09:06)
[2021-01-17] MEDS: Nystatin Cream 15 GM TUBE TOP SCH ×2 (09:07→22:32)
[2021-01-17] MEDS: Enoxaparin Sodium 40 MG/0.4 ML SYRINGE SC SCH (09:07)
[2021-01-17] MEDS: Polyethylene Glycol 3350 17 GM Packet PO SCH (09:28)
[2021-01-17] MEDS: Lantus 1000 UNITS/10 ML VIAL SC SCH (10:21)
[2021-01-17] MEDS: HumaLOG 300 UNITS/3 ML VIAL SC PRN (15:54)
[2021-01-17] MEDS: Acetaminophen 325 MG TAB PO PRN (17:23)
[2021-01-17] MEDS: Mirtazapine 15 MG TAB PO SCH (22:32)
[2021-01-18] MEDS: Levothyroxine Sodium 100 MCG TAB PO SCH (05:38)
[2021-01-18] MEDS: Budesonide 0.5 MG/2 ML NEB NEB SCH ×2 (07:31→18:50)
[2021-01-18] MEDS: Lactinex Tablet PO SCH (08:45)
[2021-01-18] MEDS: Loperamide HCl 2 MG CAP PO PRN ×2 (08:45→21:20)
[2021-01-18] MEDS: Multivit, Therapeutic 1 TAB PO SCH (08:45)
[2021-01-18] MEDS: Enoxaparin Sodium 40 MG/0.4 ML SYRINGE SC SCH (08:45)
[2021-01-18] MEDS: Pantoprazole 40 MG GRANULES PACKET PER TUBE SCH (08:45)
[2021-01-18] MEDS: Escitalopram Oxalate 20 mg Tablet PO SCH (08:46)
[2021-01-18] MEDS: Aspirin 81 mg Enteric Coated Tablet PO SCH (08:46)
[2021-01-18] MEDS: predniSONE 20 MG TAB PO SCH (08:46)
[2021-01-18] MEDS: Magnesium Oxide 400 MG TAB PER TUBE SCH ×2 (08:46→21:19)
[2021-01-18] MEDS: Lisinopril 10 MG TAB PO SCH ×2 (08:46→21:24)
[2021-01-18] MEDS: Amlodipine 10 MG TAB PO SCH (08:47)
[2021-01-18] MEDS: Polyethylene Glycol 3350 17 GM Packet PO SCH (08:49)
[2021-01-18] MEDS: GUAIFENESIN SF SOLN 200 MG/10 ML UDCUP PER TUBE SCH ×2 (09:47→21:19)
[2021-01-18] MEDS: Nystatin Cream 15 GM TUBE TOP SCH ×2 (09:47→21:21)
[2021-01-18] MEDS: Lantus 1000 UNITS/10 ML VIAL SC SCH (09:48)
[2021-01-18] MEDS: Mirtazapine 15 MG TAB PO SCH (21:19)
[2021-01-18] MEDS: ALPRAZolam 0.25 MG TAB PO PRN (21:20)
[2021-01-19 04:42] LABS: Anion Gap 14 mmol/L (10-20); BUN (Urea Nitrogen) 14 mg/dL (9.8-20.1); Calc. Creatinine Clearance 198 mL/min (70-130); Calcium 9.1 mg/dL (7.8-10.44); Carbon Dioxide 26 mmol/L (23-31); Chloride 105 mmol/L (98-107); Glucose 125 mg/dL (80-115); Potassium 3.9 mmol/L (3.5-5.1); Sodium 141 mmol/L (136-145)
[2021-01-19] MEDS: Levothyroxine Sodium 100 MCG TAB PO SCH (05:24)
[2021-01-19] MEDS: Budesonide 0.5 MG/2 ML NEB NEB SCH ×2 (07:56→18:44)
[2021-01-19] MEDS: Enoxaparin Sodium 40 MG/0.4 ML SYRINGE SC SCH (09:07)
[2021-01-19] MEDS: GUAIFENESIN SF SOLN 200 MG/10 ML UDCUP PER TUBE SCH ×2 (09:07→21:55)
[2021-01-19] MEDS: Diphenoxylate HCl/Atropine Tablet PO PRN ×2 (09:08→21:54)
[2021-01-19] MEDS: predniSONE 20 MG TAB PO SCH (09:08)
[2021-01-19] MEDS: Lactinex Tablet PO SCH (09:08)
[2021-01-19] MEDS: Pantoprazole 40 MG GRANULES PACKET PER TUBE SCH (09:09)
[2021-01-19] MEDS: Multivit, Therapeutic 1 TAB PO SCH (09:09)
[2021-01-19] MEDS: Lisinopril 10 MG TAB PO SCH ×2 (09:09→21:56)
[2021-01-19] MEDS: Magnesium Oxide 400 MG TAB PER TUBE SCH ×2 (09:09→21:54)
[2021-01-19] MEDS: Amlodipine 10 MG TAB PO SCH (09:09)
[2021-01-19] MEDS: Escitalopram Oxalate 20 mg Tablet PO SCH (09:09)
[2021-01-19] MEDS: Aspirin 81 mg Enteric Coated Tablet PO SCH (09:09)
[2021-01-19] MEDS: ALPRAZolam 0.25 MG TAB PO PRN ×2 (09:09→21:54)
[2021-01-19] MEDS: Lantus 1000 UNITS/10 ML VIAL SC SCH (09:18)
[2021-01-19] MEDS: Nystatin Cream 15 GM TUBE TOP SCH (09:19)
[2021-01-19] MEDS ORDERED: Nystatin Cream 30 GM TUBE TOP PRN (10:00)
[2021-01-19] MEDS: Polyethylene Glycol 3350 17 GM Packet PO SCH (10:04)
[2021-01-19] MEDS: Loperamide HCl 2 MG CAP PO PRN (14:11)
[2021-01-19] MEDS: Mirtazapine 15 MG TAB PO SCH (21:54)
[2021-01-20] MEDS: Levothyroxine Sodium 100 MCG TAB PO SCH (05:31)
[2021-01-20] MEDS: Budesonide 0.5 MG/2 ML NEB NEB SCH ×2 (07:00→17:51)
[2021-01-20] MEDS: ALPRAZolam 0.25 MG TAB PO PRN ×2 (07:59→20:14)
[2021-01-20] MEDS: predniSONE 20 MG TAB PO SCH (07:59)
[2021-01-20] MEDS: Enoxaparin Sodium 40 MG/0.4 ML SYRINGE SC SCH (07:59)
[2021-01-20] MEDS: Aspirin 81 mg Enteric Coated Tablet PO SCH (07:59)
[2021-01-20] MEDS: Diphenoxylate HCl/Atropine Tablet PO PRN (07:59)
[2021-01-20] MEDS: GUAIFENESIN SF SOLN 200 MG/10 ML UDCUP PER TUBE SCH ×2 (07:59→20:12)
[2021-01-20] MEDS: Escitalopram Oxalate 20 mg Tablet PO SCH (08:00)
[2021-01-20] MEDS: Magnesium Oxide 400 MG TAB PER TUBE SCH ×2 (08:00→20:13)
[2021-01-20] MEDS: Pantoprazole 40 MG GRANULES PACKET PER TUBE SCH (08:00)
[2021-01-20] MEDS: Amlodipine 10 MG TAB PO SCH (08:00)
[2021-01-20] MEDS: Lisinopril 10 MG TAB PO SCH ×2 (08:00→20:13)
[2021-01-20] MEDS: Lactinex Tablet PO SCH (08:00)
[2021-01-20] MEDS: Multivit, Therapeutic 1 TAB PO SCH (08:01)
[2021-01-20] MEDS: Lantus 1000 UNITS/10 ML VIAL SC SCH (08:05)
[2021-01-20] MEDS: Polyethylene Glycol 3350 17 GM Packet PO SCH (08:28)
[2021-01-20] MEDS: HumaLOG 300 UNITS/3 ML VIAL SC PRN (16:14)
[2021-01-20] MEDS: Mirtazapine 15 MG TAB PO SCH (20:13)
[2021-01-21 04:34] LABS: Anion Gap 13 mmol/L (10-20); BUN (Urea Nitrogen) 13 mg/dL (9.8-20.1); Calc. Creatinine Clearance 187 mL/min (70-130); Calcium 9.2 mg/dL (7.8-10.44); Carbon Dioxide 30 mmol/L (23-31); Chloride 104 mmol/L (98-107); Glucose 104 mg/dL (80-115); Potassium 3.8 mmol/L (3.5-5.1); Sodium 143 mmol/L (136-145)
[2021-01-21 04:46] LABS: Hemoglobin 13.3 g/dL (12.0-16.0); Platelet Count 273 thou/uL (130-400)
[2021-01-21] MEDS: Levothyroxine Sodium 100 MCG TAB PO SCH (05:20)
[2021-01-21] MEDS: Budesonide 0.5 MG/2 ML NEB NEB SCH ×2 (08:54→18:49)
[2021-01-21] MEDS: predniSONE 20 MG TAB PO SCH (09:31)
[2021-01-21] MEDS: Escitalopram Oxalate 20 mg Tablet PO SCH (09:31)
[2021-01-21] MEDS: Multivit, Therapeutic 1 TAB PO SCH (09:31)
[2021-01-21] MEDS: Lactinex Tablet PO SCH (09:31)
[2021-01-21] MEDS: Magnesium Oxide 400 MG TAB PER TUBE SCH ×2 (09:31→21:50)
[2021-01-21] MEDS: Lisinopril 10 MG TAB PO SCH ×2 (09:32→21:50)
[2021-01-21] MEDS: Amlodipine 10 MG TAB PO SCH (09:33)
[2021-01-21] MEDS: Aspirin 81 mg Enteric Coated Tablet PO SCH (09:34)
[2021-01-21] MEDS: GUAIFENESIN SF SOLN 200 MG/10 ML UDCUP PER TUBE SCH ×2 (09:34→21:50)
[2021-01-21] MEDS: Enoxaparin Sodium 40 MG/0.4 ML SYRINGE SC SCH (09:34)
[2021-01-21] MEDS: Pantoprazole 40 MG GRANULES PACKET PER TUBE SCH (09:35)
[2021-01-21] MEDS: Lantus 1000 UNITS/10 ML VIAL SC SCH (09:35)
[2021-01-21] MEDS: Polyethylene Glycol 3350 17 GM Packet PO SCH (09:36)
[2021-01-21] MEDS: Loperamide HCl 2 MG CAP PO PRN ×2 (11:03→18:05)
[2021-01-21] MEDS: Mirtazapine 15 MG TAB PO SCH (21:50)
[2021-01-22] MEDS: Budesonide 0.5 MG/2 ML NEB NEB SCH ×2 (07:28→18:35)
[2021-01-22] MEDS: Levothyroxine Sodium 100 MCG TAB PO SCH (07:28)
[2021-01-22] MEDS: Lantus 1000 UNITS/10 ML VIAL SC SCH (08:49)
[2021-01-22] MEDS: Enoxaparin Sodium 40 MG/0.4 ML SYRINGE SC SCH (09:17)
[2021-01-22] MEDS: Lactinex Tablet PO SCH (09:17)
[2021-01-22] MEDS: Pantoprazole 40 MG GRANULES PACKET PER TUBE SCH (09:17)
[2021-01-22] MEDS: predniSONE 20 MG TAB PO SCH (09:17)
[2021-01-22] MEDS: Multivit, Therapeutic 1 TAB PO SCH (09:17)
[2021-01-22] MEDS: Aspirin 81 mg Enteric Coated Tablet PO SCH (09:18)
[2021-01-22] MEDS: Magnesium Oxide 400 MG TAB PER TUBE SCH ×2 (09:18→22:24)
[2021-01-22] MEDS: Escitalopram Oxalate 20 mg Tablet PO SCH (09:18)
[2021-01-22] MEDS: Diphenoxylate HCl/Atropine Tablet PO PRN ×3 (09:19→22:24)
[2021-01-22] MEDS: Amlodipine 10 MG TAB PO SCH (09:21)
[2021-01-22] MEDS: Lisinopril 10 MG TAB PO SCH ×2 (09:22→22:24)
[2021-01-22] MEDS: GUAIFENESIN SF SOLN 200 MG/10 ML UDCUP PER TUBE SCH ×2 (09:52→22:24)
[2021-01-22] MEDS: Polyethylene Glycol 3350 17 GM Packet PO SCH (09:53)
[2021-01-22] MEDS: HumaLOG 300 UNITS/3 ML VIAL SC PRN (17:01)
[2021-01-22] MEDS: Mirtazapine 15 MG TAB PO SCH (22:24)
[2021-01-22] MEDS: ALPRAZolam 0.25 MG TAB PO PRN (22:24)
[2021-01-22 23:18] LABS: SARS-CoV-2 PCR by NAA Not Detected (NotDetected)
[2021-01-23] MEDS: Levothyroxine Sodium 100 MCG TAB PO SCH (06:08)
[2021-01-23] MEDS: Diphenoxylate HCl/Atropine Tablet PO PRN ×2 (06:44→17:11)
[2021-01-23] MEDS: Budesonide 0.5 MG/2 ML NEB NEB SCH ×2 (07:39→19:57)
[2021-01-23] MEDS: Lactinex Tablet PO SCH (09:37)
[2021-01-23] MEDS: Lisinopril 10 MG TAB PO SCH ×2 (09:37→20:21)
[2021-01-23] MEDS: Aspirin 81 mg Enteric Coated Tablet PO SCH (09:37)
[2021-01-23] MEDS: Multivit, Therapeutic 1 TAB PO SCH (09:37)
[2021-01-23] MEDS: GUAIFENESIN SF SOLN 200 MG/10 ML UDCUP PER TUBE SCH ×2 (09:37→20:28)
[2021-01-23] MEDS: predniSONE 20 MG TAB PO SCH (09:38)
[2021-01-23] MEDS: Magnesium Oxide 400 MG TAB PER TUBE SCH ×2 (09:40→20:29)
[2021-01-23] MEDS: Pantoprazole 40 MG GRANULES PACKET PER TUBE SCH (09:40)
[2021-01-23] MEDS: Amlodipine 10 MG TAB PO SCH (09:40)
[2021-01-23] MEDS: Escitalopram Oxalate 20 mg Tablet PO SCH (09:40)
[2021-01-23] MEDS: Lantus 1000 UNITS/10 ML VIAL SC SCH (09:41)
[2021-01-23] MEDS: Polyethylene Glycol 3350 17 GM Packet PO SCH (09:41)
[2021-01-23] MEDS: Enoxaparin Sodium 40 MG/0.4 ML SYRINGE SC SCH (09:41)
[2021-01-23] MEDS: Acetaminophen 325 MG TAB PO PRN (17:11)
[2021-01-23] MEDS: HumaLOG 300 UNITS/3 ML VIAL SC PRN (17:13)
[2021-01-23] MEDS ORDERED: Digoxin 0.5 MG/2 ML AMP SLOW IVP SCH (18:30)
[2021-01-23] MEDS: Mirtazapine 15 MG TAB PO SCH (20:29)
[2021-01-23] MEDS: ALPRAZolam 0.25 MG TAB PO PRN (20:29)
[2021-01-24] MEDS: Levothyroxine Sodium 100 MCG TAB PO SCH (05:41)
[2021-01-24] MEDS: Budesonide 0.5 MG/2 ML NEB NEB SCH ×2 (07:53→19:30)
[2021-01-24] MEDS: Diphenoxylate HCl/Atropine Tablet PO PRN ×2 (10:06→15:24)
[2021-01-24] MEDS: Lantus 1000 UNITS/10 ML VIAL SC SCH (10:06)
[2021-01-24] MEDS: predniSONE 20 MG TAB PO SCH (10:06)
[2021-01-24] MEDS: Escitalopram Oxalate 20 mg Tablet PO SCH (10:08)
[2021-01-24] MEDS: Aspirin 81 mg Enteric Coated Tablet PO SCH (10:08)
[2021-01-24] MEDS: Lactinex Tablet PO SCH (10:08)
[2021-01-24] MEDS: Pantoprazole 40 MG GRANULES PACKET PER TUBE SCH (10:09)
[2021-01-24] MEDS: Amlodipine 10 MG TAB PO SCH (10:09)
[2021-01-24] MEDS: Multivit, Therapeutic 1 TAB PO SCH (10:09)
[2021-01-24] MEDS: Lisinopril 10 MG TAB PO SCH ×2 (10:10→20:39)
[2021-01-24] MEDS: Magnesium Oxide 400 MG TAB PER TUBE SCH ×2 (10:10→20:39)
[2021-01-24] MEDS: GUAIFENESIN SF SOLN 200 MG/10 ML UDCUP PER TUBE SCH ×2 (10:10→20:38)
[2021-01-24] MEDS: Enoxaparin Sodium 40 MG/0.4 ML SYRINGE SC SCH (10:10)
[2021-01-24] MEDS: Polyethylene Glycol 3350 17 GM Packet PO SCH (10:11)
[2021-01-24] MEDS: HumaLOG 300 UNITS/3 ML VIAL SC PRN (16:18)
[2021-01-24] MEDS: ALPRAZolam 0.25 MG TAB PO PRN (20:39)
[2021-01-24] MEDS: Mirtazapine 15 MG TAB PO SCH (20:39)
[2021-01-25] MEDS: Diphenoxylate HCl/Atropine Tablet PO PRN ×3 (04:54→20:30)
[2021-01-25] MEDS: Levothyroxine Sodium 100 MCG TAB PO SCH (06:30)
[2021-01-25] MEDS: Budesonide 0.5 MG/2 ML NEB NEB SCH ×2 (08:35→18:30)
[2021-01-25] MEDS: Lantus 1000 UNITS/10 ML VIAL SC SCH (09:21)
[2021-01-25] MEDS: Pantoprazole 40 MG GRANULES PACKET PER TUBE SCH (09:21)
[2021-01-25] MEDS: Enoxaparin Sodium 40 MG/0.4 ML SYRINGE SC SCH (09:21)
[2021-01-25] MEDS: GUAIFENESIN SF SOLN 200 MG/10 ML UDCUP PER TUBE SCH ×2 (09:21→20:31)
[2021-01-25] MEDS: predniSONE 20 MG TAB PO SCH (09:22)
[2021-01-25] MEDS: Magnesium Oxide 400 MG TAB PER TUBE SCH ×2 (09:22→20:30)
[2021-01-25] MEDS: Lisinopril 10 MG TAB PO SCH ×2 (09:22→20:30)
[2021-01-25] MEDS: Amlodipine 10 MG TAB PO SCH (09:23)
[2021-01-25] MEDS: Aspirin 81 mg Enteric Coated Tablet PO SCH (09:23)
[2021-01-25] MEDS: Lactinex Tablet PO SCH (09:24)
[2021-01-25] MEDS: Loperamide HCl 2 MG CAP PO PRN (09:24)
[2021-01-25] MEDS: Multivit, Therapeutic 1 TAB PO SCH (09:24)
[2021-01-25] MEDS: Escitalopram Oxalate 20 mg Tablet PO SCH (09:24)
[2021-01-25] MEDS: Polyethylene Glycol 3350 17 GM Packet PO SCH (09:24)
[2021-01-25] MEDS: ALPRAZolam 0.25 MG TAB PO PRN (20:30)
[2021-01-25] MEDS: Mirtazapine 15 MG TAB PO SCH (20:30)
[2021-01-26] MEDS: Levothyroxine Sodium 100 MCG TAB PO SCH (05:00)
[2021-01-26] MEDS: Budesonide 0.5 MG/2 ML NEB NEB SCH ×2 (08:42→18:41)
[2021-01-26] MEDS: Diphenoxylate HCl/Atropine Tablet PO PRN ×3 (10:13→22:28)
[2021-01-26] MEDS: predniSONE 20 MG TAB PO SCH (10:13)
[2021-01-26] MEDS: Lantus 1000 UNITS/10 ML VIAL SC SCH (10:14)
[2021-01-26] MEDS: Aspirin 81 mg Enteric Coated Tablet PO SCH (10:15)
[2021-01-26] MEDS: Lactinex Tablet PO SCH (10:15)
[2021-01-26] MEDS: Pantoprazole 40 MG GRANULES PACKET PER TUBE SCH (10:15)
[2021-01-26] MEDS: Lisinopril 10 MG TAB PO SCH ×2 (10:15→20:26)
[2021-01-26] MEDS: Multivit, Therapeutic 1 TAB PO SCH (10:15)
[2021-01-26] MEDS: Amlodipine 10 MG TAB PO SCH (10:16)
[2021-01-26] MEDS: Enoxaparin Sodium 40 MG/0.4 ML SYRINGE SC SCH (10:16)
[2021-01-26] MEDS: GUAIFENESIN SF SOLN 200 MG/10 ML UDCUP PER TUBE SCH ×2 (10:16→20:28)
[2021-01-26] MEDS: Escitalopram Oxalate 20 mg Tablet PO SCH (10:16)
[2021-01-26] MEDS: Magnesium Oxide 400 MG TAB PER TUBE SCH ×2 (10:16→20:25)
[2021-01-26] MEDS: Polyethylene Glycol 3350 17 GM Packet PO SCH (10:17)
[2021-01-26] MEDS: Mirtazapine 15 MG TAB PO SCH (20:27)
[2021-01-27] MEDS: Levothyroxine Sodium 100 MCG TAB PO SCH (05:28)
[2021-01-27] MEDS: Budesonide 0.5 MG/2 ML NEB NEB SCH ×2 (05:57→19:06)
[2021-01-27] MEDS: Lactinex Tablet PO SCH (09:31)
[2021-01-27] MEDS: GUAIFENESIN SF SOLN 200 MG/10 ML UDCUP PER TUBE SCH ×2 (09:31→20:44)
[2021-01-27] MEDS: Enoxaparin Sodium 40 MG/0.4 ML SYRINGE SC SCH (09:31)
[2021-01-27] MEDS: Pantoprazole 40 MG GRANULES PACKET PER TUBE SCH (09:32)
[2021-01-27] MEDS: predniSONE 20 MG TAB PO SCH (09:32)
[2021-01-27] MEDS: Escitalopram Oxalate 20 mg Tablet PO SCH (09:32)
[2021-01-27] MEDS: Amlodipine 10 MG TAB PO SCH (09:32)
[2021-01-27] MEDS: Diphenoxylate HCl/Atropine Tablet PO PRN (09:32)
[2021-01-27] MEDS: Lisinopril 10 MG TAB PO SCH ×2 (09:32→20:44)
[2021-01-27] MEDS: Aspirin 81 mg Enteric Coated Tablet PO SCH (09:32)
[2021-01-27] MEDS: Multivit, Therapeutic 1 TAB PO SCH (09:32)
[2021-01-27] MEDS: Magnesium Oxide 400 MG TAB PER TUBE SCH ×2 (09:32→20:43)
[2021-01-27] MEDS: Lantus 1000 UNITS/10 ML VIAL SC SCH (09:46)
[2021-01-27] MEDS: Polyethylene Glycol 3350 17 GM Packet PO SCH (11:10)
[2021-01-27] MEDS: Mirtazapine 15 MG TAB PO SCH (20:44)
[2021-01-28] MEDS: Levothyroxine Sodium 100 MCG TAB PO SCH (05:33)
[2021-01-28] MEDS: Budesonide 0.5 MG/2 ML NEB NEB SCH ×2 (07:09→19:03)
[2021-01-28] MEDS: Enoxaparin Sodium 40 MG/0.4 ML SYRINGE SC SCH (08:20)
[2021-01-28] MEDS: Magnesium Oxide 400 MG TAB PER TUBE SCH ×2 (08:20→20:09)
[2021-01-28] MEDS: Aspirin 81 mg Enteric Coated Tablet PO SCH (08:20)
[2021-01-28] MEDS: Amlodipine 10 MG TAB PO SCH (08:20)
[2021-01-28] MEDS: GUAIFENESIN SF SOLN 200 MG/10 ML UDCUP PER TUBE SCH ×2 (08:20→20:09)
[2021-01-28] MEDS: Escitalopram Oxalate 20 mg Tablet PO SCH (08:20)
[2021-01-28] MEDS: Lactinex Tablet PO SCH (08:21)
[2021-01-28] MEDS: predniSONE 20 MG TAB PO SCH (08:21)
[2021-01-28] MEDS: Lisinopril 10 MG TAB PO SCH ×2 (08:21→20:09)
[2021-01-28] MEDS: Pantoprazole 40 MG GRANULES PACKET PER TUBE SCH (08:21)
[2021-01-28] MEDS: Diphenoxylate HCl/Atropine Tablet PO PRN (08:21)
[2021-01-28] MEDS: Multivit, Therapeutic 1 TAB PO SCH (08:21)
[2021-01-28] MEDS: Lantus 1000 UNITS/10 ML VIAL SC SCH (08:23)
[2021-01-28] MEDS: Polyethylene Glycol 3350 17 GM Packet PO SCH (09:05)
[2021-01-28] MEDS: Mirtazapine 15 MG TAB PO SCH (20:09)
[2021-01-29] MEDS: Levothyroxine Sodium 100 MCG TAB PO SCH (05:37)
[2021-01-29] MEDS: Budesonide 0.5 MG/2 ML NEB NEB SCH ×2 (07:35→18:35)
[2021-01-29] MEDS: Diphenoxylate HCl/Atropine Tablet PO PRN (08:32)
[2021-01-29] MEDS: Enoxaparin Sodium 40 MG/0.4 ML SYRINGE SC SCH (08:32)
[2021-01-29] MEDS: GUAIFENESIN SF SOLN 200 MG/10 ML UDCUP PER TUBE SCH ×2 (08:32→20:49)
[2021-01-29] MEDS: predniSONE 20 MG TAB PO SCH (08:33)
[2021-01-29] MEDS: Magnesium Oxide 400 MG TAB PER TUBE SCH ×2 (08:33→20:48)
[2021-01-29] MEDS: Escitalopram Oxalate 20 mg Tablet PO SCH (08:33)
[2021-01-29] MEDS: Multivit, Therapeutic 1 TAB PO SCH (08:33)
[2021-01-29] MEDS: Pantoprazole 40 MG GRANULES PACKET PER TUBE SCH (08:33)
[2021-01-29] MEDS: Amlodipine 10 MG TAB PO SCH (08:33)
[2021-01-29] MEDS: Lisinopril 10 MG TAB PO SCH ×2 (08:33→20:48)
[2021-01-29] MEDS: Aspirin 81 mg Enteric Coated Tablet PO SCH (08:33)
[2021-01-29] MEDS: Lactinex Tablet PO SCH (08:33)
[2021-01-29] MEDS: Lantus 1000 UNITS/10 ML VIAL SC SCH (08:36)
[2021-01-29] MEDS: Polyethylene Glycol 3350 17 GM Packet PO SCH (09:47)
[2021-01-29] MEDS: Mirtazapine 15 MG TAB PO SCH (20:48)
[2021-01-30] MEDS: Diphenoxylate HCl/Atropine Tablet PO PRN ×3 (01:09→20:23)
[2021-01-30] MEDS: Levothyroxine Sodium 100 MCG TAB PO SCH (06:03)
[2021-01-30] MEDS: Budesonide 0.5 MG/2 ML NEB NEB SCH ×2 (07:26→18:50)
[2021-01-30] MEDS: Lisinopril 10 MG TAB PO SCH ×2 (09:22→20:23)
[2021-01-30] MEDS: GUAIFENESIN SF SOLN 200 MG/10 ML UDCUP PER TUBE SCH ×2 (09:22→20:23)
[2021-01-30] MEDS: Amlodipine 10 MG TAB PO SCH (09:22)
[2021-01-30] MEDS: Escitalopram Oxalate 20 mg Tablet PO SCH (09:23)
[2021-01-30] MEDS: Multivit, Therapeutic 1 TAB PO SCH (09:23)
[2021-01-30] MEDS: Aspirin 81 mg Enteric Coated Tablet PO SCH (09:23)
[2021-01-30] MEDS: Pantoprazole 40 MG GRANULES PACKET PER TUBE SCH (09:23)
[2021-01-30] MEDS: Magnesium Oxide 400 MG TAB PER TUBE SCH ×2 (09:23→20:23)
[2021-01-30] MEDS: predniSONE 20 MG TAB PO SCH (09:24)
[2021-01-30] MEDS: Lactinex Tablet PO SCH (09:24)
[2021-01-30] MEDS: Enoxaparin Sodium 40 MG/0.4 ML SYRINGE SC SCH (09:24)
[2021-01-30] MEDS: Lantus 1000 UNITS/10 ML VIAL SC SCH (09:28)
[2021-01-30] MEDS: Polyethylene Glycol 3350 17 GM Packet PO SCH (09:28)
[2021-01-30 18:38] LABS: SARS-CoV-2 PCR by NAA Not Detected (NotDetected)
[2021-01-30] MEDS: Mirtazapine 15 MG TAB PO SCH (20:23)
[2021-01-31] MEDS: Levothyroxine Sodium 100 MCG TAB PO SCH (05:53)
[2021-01-31] MEDS: Budesonide 0.5 MG/2 ML NEB NEB SCH ×2 (07:03→19:22)
[2021-01-31] MEDS: Lantus 1000 UNITS/10 ML VIAL SC SCH (09:45)
[2021-01-31] MEDS: GUAIFENESIN SF SOLN 200 MG/10 ML UDCUP PER TUBE SCH ×2 (09:45→20:31)
[2021-01-31] MEDS: Enoxaparin Sodium 40 MG/0.4 ML SYRINGE SC SCH (09:45)
[2021-01-31] MEDS: Amlodipine 10 MG TAB PO SCH (09:46)
[2021-01-31] MEDS: Aspirin 81 mg Enteric Coated Tablet PO SCH (09:46)
[2021-01-31] MEDS: Escitalopram Oxalate 20 mg Tablet PO SCH (09:47)
[2021-01-31] MEDS: Pantoprazole 40 MG GRANULES PACKET PER TUBE SCH (09:47)
[2021-01-31] MEDS: predniSONE 20 MG TAB PO SCH (09:47)
[2021-01-31] MEDS: Magnesium Oxide 400 MG TAB PER TUBE SCH ×2 (09:47→20:31)
[2021-01-31] MEDS: Lactinex Tablet PO SCH (09:47)
[2021-01-31] MEDS: Lisinopril 10 MG TAB PO SCH ×2 (09:47→20:31)
[2021-01-31] MEDS: Multivit, Therapeutic 1 TAB PO SCH (09:47)
[2021-01-31] MEDS: Polyethylene Glycol 3350 17 GM Packet PO SCH (09:48)
[2021-01-31] MEDS: Diphenoxylate HCl/Atropine Tablet PO PRN (09:53)
[2021-01-31 13:00] VITALS: BMI 43.4
[2021-01-31] MEDS: Mirtazapine 15 MG TAB PO SCH (20:31)
[2021-02-01] MEDS: Levothyroxine Sodium 100 MCG TAB PO SCH (05:33)
[2021-02-01 08:12] LABS: #Basophils 0.1 thou/uL (0.0-0.2); #Eosinphils 0.2 thou/uL (0.0-0.7); #Lymphocytes 1.9 thou/uL (1.20-3.40); #Monocytes 0.6 thou/uL (0.11-0.59); #Neutrophils 3.8 thou/uL (1.40-6.50); %Eosinophils 2.7 % (0.0-10.0); %Lymphocytes 29.6 % (21.0-51.0); %Monocytes 8.6 % (0.0-10.0); %Neutrophils 58.2 % (42.0-75.0); Hemoglobin 13.3 g/dL (12.0-16.0); Mean Corpuscular HGB CONC 32.2 g/dL (32.0-36.0); Mean Corpuscular Hemoglobin 31.4 pg (27.0-31.0); Mean Corpuscular Volume 97.6 fL (78.0-98.0); Mean Platelet Volume 7.9 fL (7.4-10.4); Platelet Count 198 thou/uL (130-400); RBC Distribution Width 14.1 % (11.5-14.5); Red Blood Cell (RBC) Count 4.24 mill/uL (4.20-5.40); White Blood Cell (WBC) Count 6.5 thou/uL (4.8-10.8)
[2021-02-01 08:29] LABS: Anion Gap 14 mmol/L (10-20); BUN (Urea Nitrogen) 12 mg/dL (9.8-20.1); Calc. Creatinine Clearance 191 mL/min (70-130); Calcium 9.2 mg/dL (7.8-10.44); Carbon Dioxide 29 mmol/L (23-31); Chloride 105 mmol/L (98-107); Glucose 119 mg/dL (80-115); Potassium 3.7 mmol/L (3.5-5.1); Sodium 144 mmol/L (136-145)
[2021-02-01] MEDS: Budesonide 0.5 MG/2 ML NEB NEB SCH (09:07)
[2021-02-01] MEDS: Enoxaparin Sodium 40 MG/0.4 ML SYRINGE SC SCH (09:42)
[2021-02-01] MEDS: Diphenoxylate HCl/Atropine Tablet PO PRN (09:43)
[2021-02-01] MEDS: Lactinex Tablet PO SCH (09:43)
[2021-02-01] MEDS: Aspirin 81 mg Enteric Coated Tablet PO SCH (09:43)
[2021-02-01] MEDS: Lisinopril 10 MG TAB PO SCH (09:43)
[2021-02-01] MEDS: Polyethylene Glycol 3350 17 GM Packet PO SCH (09:43)
[2021-02-01] MEDS: Escitalopram Oxalate 20 mg Tablet PO SCH (09:43)
[2021-02-01] MEDS: Multivit, Therapeutic 1 TAB PO SCH (09:43)
[2021-02-01] MEDS: predniSONE 20 MG TAB PO SCH (09:43)
[2021-02-01] MEDS: Pantoprazole 40 MG GRANULES PACKET PER TUBE SCH (09:44)
[2021-02-01] MEDS: Amlodipine 10 MG TAB PO SCH (09:44)
[2021-02-01] MEDS: Magnesium Oxide 400 MG TAB PER TUBE SCH (09:44)
[2021-02-01] MEDS: Lantus 1000 UNITS/10 ML VIAL SC SCH (09:45)
[2021-02-01] MEDS: GUAIFENESIN SF SOLN 200 MG/10 ML UDCUP PER TUBE SCH (09:46)
[2021-02-01 10:02] VITALS: BP 109/58
[2021-02-01 14:28] VITALS: TEMP 97.3
== END 2021-02-01 16:35 | DRG 4 ==
LOC: ERS 20:25 → CCU 20:29 → 2NO 12-17 05:59 → IMCU/EMU 12-17 12:19 → ONC 12-25 15:01
PROVIDERS: ADMIT Internal Medicine; ATTEND Internal Medicine
PROC: 5A1945Z Respiratory Ventilation, 24-96 Consecutive Hours (ICD-10-PCS; 2020-12-14)
PROC: 0D9670Z Drainage of Stomach with Drainage Device, Via Natural or Artificial Opening (ICD-10-PCS; 2020-12-14)
PROC: 5A09557 Assistance with Respiratory Ventilation, Greater than 96 Consecutive Hours, Continuous Positive Airway Pressure (ICD-10-PCS; 2020-12-17)
PROC: 0B110F4 Bypass Trachea to Cutaneous with Tracheostomy Device, Open Approach (ICD-10-PCS; principal; 2020-12-22)
PROC: 0CJS8ZZ Inspection of Larynx, Via Natural or Artificial Opening Endoscopic (ICD-10-PCS; 2020-12-24)
DX: A41.9 Sepsis, unspecified organism (principal); J96.21 Acute and chronic respiratory failure with hypoxia; J18.9 Pneumonia, unspecified organism; G92 Toxic encephalopathy; J95.03 Malfunction of tracheostomy stoma; I50.32 Chronic diastolic (congestive) heart failure; N30.00 Acute cystitis without hematuria; E44.0 Moderate protein-calorie malnutrition; B37.89 Other sites of candidiasis; Z68.41 Body mass index [BMI] 40.0-44.9, adult; Z99.11 Dependence on respirator [ventilator] status; R65.20 Severe sepsis without septic shock; Z20.822 Contact with and (suspected) exposure to COVID-19; L89.152 Pressure ulcer of sacral region, stage 2; E03.9 Hypothyroidism, unspecified; I11.0 Hypertensive heart disease with heart failure; R13.10 Dysphagia, unspecified; E66.01 Morbid (severe) obesity due to excess calories; E11.69 Type 2 diabetes mellitus with other specified complication; R62.7 Adult failure to thrive; E78.5 Hyperlipidemia, unspecified; Y83.8 Other surgical procedures as the cause of abnormal reaction of the patient, or of later complication, without mention of misadventure at the time of the procedure; J38.01 Paralysis of vocal cords and larynx, unilateral; Z51.5 Encounter for palliative care; F41.9 Anxiety disorder, unspecified; E87.6 Hypokalemia; R19.7 Diarrhea, unspecified; E83.42 Hypomagnesemia; Z88.0 Allergy status to penicillin; Z88.1 Allergy status to other antibiotic agents; Z79.82 Long term (current) use of aspirin; Z79.4 Long term (current) use of insulin; Z79.899 Other long term (current) drug therapy; Z78.1 Physical restraint status; Z86.16 Personal history of COVID-19; Z79.890 Hormone replacement therapy; Z79.52 Long term (current) use of systemic steroids; Z86.74 Personal history of sudden cardiac arrest; Z93.1 Gastrostomy status; Z98.890 Other specified postprocedural states; Z87.2 Personal history of diseases of the skin and subcutaneous tissue; L40.9 Psoriasis, unspecified; T38.0X5A Adverse effect of glucocorticoids and synthetic analogues, initial encounter; Y92.230 Patient room in hospital as the place of occurrence of the external cause
CPT/HCPCS: 0240U; 36415; 36416; 36600; 70450; 70490; 71045; 71275; 80048; 80053; 81003; 81015; 82805; 83605; 83690; 83735; 83880; 84100; 84132; 84145; 84484; 85007; 85014; 85018; 85025; 85027; 85049; 85610; 85730; 87040; 87070; 87086; 87205; 87324; 87449; 93005; 94002; 94003; 94640; 94660; 96365; 96366; 96374; 96375; 96376; C9113; J0692; J1100; J1650; J1815; J2060; J2185; J2405; J2704; J2920; J3010; J3370; J3490; J7512; J7620; J7626; S0028; U0003; U0005